=== PATIENT | male | born 1935 | race Caucasian/White ===

== ENCOUNTER → 2017-06-25 | Outpatient (CLI) | payer OTHER ==
[2015-09-21 00:20] VITALS: BP 116/61
--- NOTE | 2017-06-25 15:25 | MRI ---
MRI left shoulder without contrast Indication: Chronic left shoulder pain Technique: Multisequence, multiplanar MR images of the left shoulder were obtained without IV contras t. Comparison: None Findings: No acute fracture or malalignment is identified. There are complete tears of the supraspinatus and infraspinatus tendons at the footplate with central retraction of the torn tendons to the level of the AC joint. There is also a full-thickness tear of the subscapularis with only a few intact inferior fibers remaining. The teres minor is normal. There is marked diffuse atrophy of the supraspinatus, infraspinatus and subscapularis muscles, compatible w ith chronicity. There is moderate degenerative arthrosis of the AC joint. The type 2 acromion is unremarkable. There is advanced degenerative arthrosis of the glenohumeral joint with diffuse full-thickness cartilage lo ss throughout the joint space and prominent marginal osteophyte formation. There is also complete obl iteration of the acromiohumeral interval with contact between the inferior surface of the acromion an d superior humeral head. A small glenohumeral joint effusion is present. The intra-articular and extra-articular portions of the long head biceps tendon are not definitively visualized. There is diffuse degenerative tearing and maceration of the glenoid labrum. Impression: Complete tears of the supraspinatus, infraspinatus and majority of the subscapularis tendon with marie ed associated muscle atrophy, compatible with chronicity. 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 Poor visualization of the long head biceps tendon, suggestive for tear versus medial displacement sec ondary to subscapularis tears. Diffuse degenerative tearing and maceration of the glenoid labrum. Reported By:
== END | disposition home or self-care (01) | DRG 556 ==
LOC: RAD 09:18
PROVIDERS: ATTEND Internal Medicine
DX: M25.512 Pain in left shoulder (principal); M75.122 Complete rotator cuff tear or rupture of left shoulder, not specified as traumatic; M19.012 Primary osteoarthritis, left shoulder
CPT/HCPCS: 73221

== ENCOUNTER 2019-09-10 16:44 | Inpatient (IN) ==
--- NOTE | 2019-09-10 16:55 | DR.SOBA ---
HPI - Time Seen Time seen: 16:50 - HPI Comment HPI Comment: Patient with wheezing, confusion dyspnea onset today. No history of lung disease. Denies cough, vomiting, urinary symptoms. - COVID-19 Coronavirus risk:travel/contact w/high risk person: No Has patient experienced Coronavirus symptoms: Yes Coronavirus symptoms experienced: Fever, Shortness of Breath - Reviewed Nurses Notes Reviewed: Yes - Source History Provided: Patient, Family Member - Mode of Arrival Mode of Arrival: Ambulatory - Duration Duration: Hours - Context Onset:: At Rest PE Risk Factors:: None History of:: None Prehospital Care:: None - Modifying Factors Worsens:: Exertion PMH - PMH Past Medical History: Angina, [place], Coronary Artery Disease, Hypertension, Dyslipidemia, CVA, GERD, Arthritis, Kidney Stones Past Surgical History: Yes Surgical History: Angioplasty/Stents, CABG/Valve Surgery Unable to Obtain Due To: Altered mental status (mild mostly alert) - Family History Family Medical History: [place] - Social History Do you use any recreational Drugs:: No ROS - Review of Systems Constitutional: Fever Eyes: No Symptoms Reported ENTM: No Symptoms Reported Respiratoy: Short of Breath, Wheezing Cardiovascular: No Symptoms Reported Gastrointestinal/Abdominal: No Symptoms Reported Genitourinary: No Symptoms Reported Neurological: Other (confusion intermittent) Musculoskeletal: No Symptoms Reported Integumentary: No Symptoms Reported Hematologic/Lymphatic: No Symptoms Reported Endocrine: No Symptoms Reported Psychiatric: No Symptoms Reported All Other Systems: Reviewed and Negative PE - General Limitations: No Limitations General Appearance: Alert, In No Apparent Distress - Head Head Exam: Normal Inspection - Eyes Eye exam: Normal Appearance, EOMI - ENT ENT Exam: Normal Exam, Normal Oropharynx - Neck Neck Exam: Normal Inspection, Full ROM, Trachea Midline - Chest Chest Inspection: Normal Inspection - Respiratory Respiratory Exam: Bilateral Wheezing, Lower Wheezing - Cardiovascular Cardiovascular Exam: Regular Rate - Abdominal Exam Abdominal Exam: Normal Inspection, Normal Bowel Sounds, Soft - Extremities Extremities Exam: Normal Inspection, Full ROM - Back Back Exam: Normal Inspection, Full ROM - Neurologic Neurological Exam: Alert, CN II-XII Intact - Psychiatric Psychiatric Exam: Depressed - Skin Skin Exam: Intact, Normal Color - Vital Signs Vitals: Temperature 100.4 F Pulse Rate 83 Respiratory Rate 16 Blood Pressure [Left Arm] 123/73 Blood Pressure 150/62 O2 Sat by Pulse Oximetry 90 Course - Consultation Called: 17:55 Call Returned: 17:58 Consultation Comments: Case discussed with DR. Stein admmarco ROR - Labs Reviewed Result Diagrams: 09/10/19 17:00 09/10/19 17:00 - XRAY XRAY Interpreted by: Radiologist, Self - EKG Rate: 85 [place]: Normal Rhythm: NSR Block: None Hypertrophy: None ST: Nonsp - Labs Reviewed Laboratory: WBC 15.1 X10^3/uL (3.6-10.0) H 09/10/19 17:00 RBC 4.35 X10^6/uL (4.7-6.0) L 09/10/19 17:00 Hgb 12.8 g/dL (13.5-18.0) L 09/10/19 17:00 Hct 39.2 % (42.0-54.0) L 09/10/19 17:00 MCV 90.0 fL (80.0-100.0) 09/10/19 17:00 MCH 29.4 pg (27.0-34.0) 09/10/19 17:00 MCHC 32.6 g/dL (33.0-35.0) L 09/10/19 17:00 RDW 14.1 % (11.6-16.5) 09/10/19 17:00 Plt Count 237 X10^3/uL (150.0-450.0) 09/10/19 17:00 MPV 8.6 fL (7.4-11.0) 09/10/19 17:00 Neut % (Auto) 79.0 % (42.0-75.0) H 09/10/19 17:00 Lymph % (Auto) 11.5 % (21.0-51.0) L 09/10/19 17:00 [place] % (Auto) 9.1 % (0.0-13.0) 09/10/19 17:00 Eos % (Auto) 0.2 % (0.9-2.9) L 09/10/19 17:00 Baso % (Auto) 0.2 % (0.2-1.0) 09/10/19 17:00 Neut # (Auto) 11.9 x10^3/uL (2.2-4.8) H 09/10/19 17:00 Lymph # (Auto) 1.7 X10^3/uL (1.3-2.9) 09/10/19 17:00 [place] # (Auto) 1.4 x10^3/uL (0.3-0.8) H 09/10/19 17:00 Eos # (Auto) 0.0 x10^3/uL (0.0-0.2) 09/10/19 17:00 Baso # (Auto) 0.0 X10^3/uL (0.0-0.1) 09/10/19 17:00 Absolute Nucleated RBC 0.0 /100WBC 09/10/19 17:00 Sodium 139 mmol/L (136-145) 09/10/19 17:00 Corrected Sodium 139 mmol/L (136-145) 09/10/19 17:00 Potassium 3.8 mmol/L (3.5-5.1) 09/10/19 17:00 Chloride 102 mmol/L (98-107) 09/10/19 17:00 Carbon Dioxide 29.8 mmol/L (21-32) 09/10/19 17:00 BUN 26 mg/dL (7-18) H 09/10/19 17:00 Creatinine 1.17 mg/dL (0.70-1.30) 09/10/19 17:00 Est GFR (MDRD) Af Amer > 60 (>60) 09/10/19 17:00 Est GFR (MDRD) Non-Af > 60 (>60) 09/10/19 17:00 Glucose 116 mg/dL (65-99) H 09/10/19 17:00 Calcium 9.2 mg/dL (8.5-10.1) 09/10/19 17:00 Corrected Calcium 10.2 mg/dL (8.5-10.1) H 09/10/19 17:00 Total Bilirubin 0.90 mg/dL (0.2-1.0) 09/10/19 17:00 AST 28 Units/L (15-37) 09/10/19 17:00 ALT 16 Units/L (12-78) 09/10/19 17:00 Alkaline Phosphatase 106 Units/L (46-116) 09/10/19 17:00 Total Protein 7.2 g/dL (6.4-8.2) 09/10/19 17:00 Albumin 2.7 g/dL (3.4-5.0) L 09/10/19 17:00 Globulin 4.5 g/dL (2.5-4.5) 09/10/19 17:00 Albumin/Globulin Ratio 0.6 Ratio (1.1-2.1) L 09/10/19 17:00 Influenza Type A Ag Negative-presumptive (NEGATIVE) 09/10/19 17:10 Influenza Type B Ag Negative-presumptive (NEGATIVE) 09/10/19 17:10 S. pyogenes (TEM-PCR) Not detected (NOT DETECT) 09/10/19 17:10 - XRAY Xray Findings: chest: IMPRESSION 1. Chronic appearing elevation of both hemidiaphragms, right greater than left, with associated bibasilar atelectasis which limits optimal evaluation of both lung bases. 2. Air-filled loops of bowel beneath the right hemidiaphragm likely reflecting the hepatic flexure. Correlation for bowel obstruction is requested. 3. Post median sternotomy and CABG. (DENISE LIMA) Opioid - Opioid Risk Tool Age (Denise box if 16-45): No History of Preadolescent Sexual Abuse: No Total: 0 Total Score Risk Category: Low Risk - Diagnosis Discharge Problem: Pneumonia Qualifiers: Pneumonia type: due to unspecified organism Laterality: right Lung location: lower lobe of lung Qualified Code(s): J18.9 - Pneumonia, unspecified organism - Discharge Plan Condition: Stable
[2019-09-10] MEDS ORDERED: MOTRIN TAB 800 MG PO ONE ×2 (17:05→17:09)
[2019-09-10 17:28] LABS: ALANINE AMINOTRANSFERASE 16 Units/L (12-78); ALBUMIN 2.7 g/dL (3.4-5.0); ALKALINE PHOSPHATASE 106 Units/L (46-116); ASPARTATE AMINO TRANSFERASE 28 Units/L (15-37); BLOOD UREA NITROGEN 26 mg/dL (7-18); CALCIUM 9.2 mg/dL (8.5-10.1); CARBON DIOXIDE 29.8 mmol/L (21-32); CHLORIDE 102 mmol/L (98-107); COR CA(FOR HYPOALB) 10.2 mg/dL (8.5-10.1); COR NA(FOR HYPERGLY) 139 mmol/L (136-145); CREATININE 1.17 mg/dL (0.70-1.30); SODIUM 139 mmol/L (136-145); TOTAL PROTEIN 7.2 g/dL (6.4-8.2); eGFR NON BLACK RACES > 60 (>60)
--- NOTE | 2019-09-10 17:40 | RAD ---
HISTORYSOB, HEMOPTYSISSTUDYCHEST, 1 [id number]/2019.FINDINGSThe trachea is midline. There has been previous median sternotomy and CABG. There is chronic appearing elevation of both hemidiaphragms, right greater than left, with associated bibasilar atelectasis. There are air-filled loops of bowel beneath the right hemidiaphragm likely reflecting the hepatic flexure. The upper lung zones are clear bilaterally. Bony thorax is grossly unchanged.IMPRESSION1. Chronic appearing elevation of both hemidiaphragms, right greater than left, with associated bibasilar atelectasis which limits optimal evaluation of both lung bases.2. Air-filled loops of bowel beneath the right hemidiaphragm likely reflecting the hepatic flexure. Correlation for bowel obstruction is requested.3. Post median sternotomy and CABG.Electronically signed by: LINDA AUGUSTINE (Sep 10, 2019 17:38:47)
[2019-09-10 17:44] LABS: BASOPHILS % (AUTO) 0.2 % (0.2-1.0); EOSINOPHILS % (AUTO) 0.2 % (0.9-2.9); HEMATOCRIT 39.2 % (42.0-54.0); HEMOGLOBIN 12.8 g/dL (13.5-18.0); LYMPHOCYTES # (AUTO) 1.7 X10^3/uL (1.3-2.9); LYMPHOCYTES % (AUTO) 11.5 % (21.0-51.0); MEAN CORPUSCULAR HEMOGLOBIN 29.4 pg (27.0-34.0); MEAN CORPUSCULAR HGB CONC 32.6 g/dL (33.0-35.0); MEAN PLATELET VOLUME 8.6 fL (7.4-11.0); MONOCYTES # (AUTO) 1.4 x10^3/uL (0.3-0.8); MONOCYTES % (AUTO) 9.1 % (0.0-13.0); NEUTROPHILS # (AUTO) 11.9 x10^3/uL (2.2-4.8); PLATELET COUNT 237 X10^3/uL (150.0-450.0); RED BLOOD COUNT 4.35 X10^6/uL (4.7-6.0); RED CELL DISTRIBUTION WIDTH 14.1 % (11.6-16.5); WHITE BLOOD COUNT 15.1 X10^3/uL (3.6-10.0)
[2019-09-10] MEDS ORDERED: NS 1000 ML 1,000 ML ONE (18:11)
[2019-09-10] MEDS ORDERED: ZITHROMAX INJ 500 MG VIAL IV ONE (18:12)
[2019-09-10] MEDS ORDERED: NS 250 ML IV 250 ML IV ONE (18:12)
[2019-09-10] MEDS: NS 1000 ML 1,000 ML IV SCH (18:15)
[2019-09-10] MEDS: ZITHROMAX INJ 500 MG VIAL 500 MG in NS 250 ML IV 250 ML IV SCH (18:15)
[2019-09-10] MEDS ORDERED: TESSALON PERLES PO PRN (18:15)
[2019-09-10 18:40] LABS: CKMB % 0.6 % (<4); CREATINE KINASE 224 Units/L (39-308); CREATINE KINASE MB 1.3 ng/mL (0-4.0); TROPONIN I < 0.02 ng/mL (0-1.5)
[2019-09-10 19:54] LABS: ABG BASE EXCESS 3.3 mmol/L (-2.0-2.0); ABG HCO3 27.8 mmol/L (22-26)
[2019-09-10 19:59] LABS: ABG ALLEN TEST POSS
[2019-09-10] MEDS ORDERED: DUONEB 0.5 MG/3 MG (3 mL) NEB SCH (21:00)
[2019-09-10 23:32] LABS: BILIRUBIN,URINE NEGATIVE (NEGATIVE); BLOOD/HEMOGLOBIN,URINE 2+ (NEGATIVE); GLUCOSE, URINE NEGATIVE (NEGATIVE); KETONES,URINE 1+ (NEGATIVE); LEUKOCYTE ESTERASE ,URINE 1+ (NEGATIVE); NITRITES,URINE NEGATIVE (NEGATIVE); PROTEIN,URINE 3+ (NEGATIVE); UROBILINOGEN,URINE 2+ (NORMAL)
[2019-09-10 23:44] LABS: APPEARANCE,URINE HAZY (CLEAR); COLOR,URINE AMBER (YELLOW); RBC,URINE 0-2 /HPF (0-3)
[2019-09-10 23:45] LABS: BACTERIA,URINE TRACE /HPF (NEGATIVE); SQUAMOUS EPITHELIAL CELL,UR RARE /HPF (NEGATIVE)
[2019-09-11 01:23] VITALS: BMI 28.1
[2019-09-11] MEDS: ZOSYN VIAL 3.375 GRAMS 3.375 G in NS 100 ML IV + SPIKE MINIBAG* 100 ML IV SCH ×4 (02:17→22:49)
[2019-09-11] MEDS: PLAQUENIL PO SCH ×3 (02:27→22:50)
[2019-09-11] MEDS: ROBITUSSIN DM PO SCH ×5 (02:27→22:50)
[2019-09-11 05:27] LABS: BASOPHILS % (AUTO) 0.4 % (0.2-1.0); EOSINOPHILS # (AUTO) 0.2 x10^3/uL (0.0-0.2); EOSINOPHILS % (AUTO) 1.6 % (0.9-2.9); HEMATOCRIT 33.1 % (42.0-54.0); HEMOGLOBIN 11.2 g/dL (13.5-18.0); LYMPHOCYTES # (AUTO) 1.5 X10^3/uL (1.3-2.9); MEAN CORPUSCULAR HEMOGLOBIN 30.4 pg (27.0-34.0); MEAN CORPUSCULAR HGB CONC 33.9 g/dL (33.0-35.0); MEAN CORPUSCULAR VOLUME 89.5 fL (80.0-100.0); MEAN PLATELET VOLUME 8.5 fL (7.4-11.0); MONOCYTES # (AUTO) 1.1 x10^3/uL (0.3-0.8); MONOCYTES % (AUTO) 9.9 % (0.0-13.0); NEUTROPHILS # (AUTO) 8.1 x10^3/uL (2.2-4.8); NEUTROPHILS % (AUTO) 74.1 % (42.0-75.0); PLATELET COUNT 184 X10^3/uL (150.0-450.0); RED CELL DISTRIBUTION WIDTH 13.7 % (11.6-16.5); WHITE BLOOD COUNT 10.9 X10^3/uL (3.6-10.0)
[2019-09-11 05:38] LABS: ALANINE AMINOTRANSFERASE 19 Units/L (12-78); ALBUMIN 2.2 g/dL (3.4-5.0); ALKALINE PHOSPHATASE 93 Units/L (46-116); ASPARTATE AMINO TRANSFERASE 27 Units/L (15-37); BLOOD UREA NITROGEN 25 mg/dL (7-18); CALCIUM 8.6 mg/dL (8.5-10.1); CARBON DIOXIDE 28.8 mmol/L (21-32); CHLORIDE 106 mmol/L (98-107); CREATININE 0.99 mg/dL (0.70-1.30); SODIUM 140 mmol/L (136-145); eGFR NON BLACK RACES > 60 (>60)
[2019-09-11] MEDS: NS 1000 ML 1,000 ML IV SCH (10:11)
[2019-09-11] MEDS: ZITHROMAX INJ 500 MG VIAL 500 MG in NS 250 ML IV 250 ML IV SCH (15:00)
[2019-09-11] MEDS: ZITHROMAX INJ 500 MG VIAL 500 MG in D5W 250 ML IV 250 ML IV SCH (15:00)
[2019-09-11] MEDS: DUONEB 0.5 MG/3 MG (3 mL) NEB PRN ×2 (18:00→21:45)
[2019-09-12] MEDS: NS 1000 ML 1,000 ML IV SCH ×2 (00:17→18:59)
[2019-09-12 06:51] LABS: BASOPHILS % (AUTO) 0.3 % (0.2-1.0); EOSINOPHILS % (AUTO) 0.6 % (0.9-2.9); HEMATOCRIT 34.6 % (42.0-54.0); HEMOGLOBIN 11.7 g/dL (13.5-18.0); LYMPHOCYTES # (AUTO) 1.4 X10^3/uL (1.3-2.9); LYMPHOCYTES % (AUTO) 15.8 % (21.0-51.0); MEAN CORPUSCULAR HGB CONC 33.7 g/dL (33.0-35.0); MEAN PLATELET VOLUME 8.4 fL (7.4-11.0); MONOCYTES # (AUTO) 0.9 x10^3/uL (0.3-0.8); MONOCYTES % (AUTO) 10.4 % (0.0-13.0); NEUTROPHILS # (AUTO) 6.3 x10^3/uL (2.2-4.8); NEUTROPHILS % (AUTO) 72.9 % (42.0-75.0); PLATELET COUNT 205 X10^3/uL (150.0-450.0); RED BLOOD COUNT 3.89 X10^6/uL (4.7-6.0); RED CELL DISTRIBUTION WIDTH 13.7 % (11.6-16.5); WHITE BLOOD COUNT 8.7 X10^3/uL (3.6-10.0)
--- NOTE | 2019-09-12 06:58 | RAD ---
HISTORYPNEUMONIASTUDYSingle-view [id number]/24/2020FINDINGSThe trachea is midline. The cardiac silhouette is enlarged with a tortuous thoracic aorta. Prior changes of median sternotomy and CABG are observed. Blunting of the left costophrenic angle is noted with discoid atelectasis to suggest small pleural effusion and subsegmental atelectasis. Chronic elevation the right hemidiaphragm is again noted and stable. The bony thorax is unremarkable.IMPRESSIONSubsegmental atelectasis left base with blunted left costophrenic angle to suggest a small pleural effusion. Essentially stable radiograph.Electronically signed by: YASH HERANNDEZ (Sep 12, 2019 06:57:01)
[2019-09-12 07:03] LABS: ALANINE AMINOTRANSFERASE 20 Units/L (12-78); ALBUMIN 2.2 g/dL (3.4-5.0); ALKALINE PHOSPHATASE 102 Units/L (46-116); ASPARTATE AMINO TRANSFERASE 31 Units/L (15-37); BLOOD UREA NITROGEN 12 mg/dL (7-18); CALCIUM 8.4 mg/dL (8.5-10.1); CARBON DIOXIDE 27.8 mmol/L (21-32); CHLORIDE 106 mmol/L (98-107); COR CA(FOR HYPOALB) 9.8 mg/dL (8.5-10.1); COR NA(FOR HYPERGLY) 142 mmol/L (136-145); CREATININE 0.89 mg/dL (0.70-1.30); SODIUM 141 mmol/L (136-145); TOTAL PROTEIN 6.1 g/dL (6.4-8.2); eGFR NON BLACK RACES > 60 (>60)
[2019-09-12] MEDS ORDERED: MAGNESIUM SULFATE 1 GRAM/100 mL PREMIX 1 GM/100 ML BAG IV PRN (08:03)
[2019-09-12] MEDS ORDERED: POTASSIUM CHL 40 MEQ/NS 0.45% 500 ML IV PRN (08:03)
[2019-09-12] MEDS ORDERED: POTASSIUM CHLORIDE LIQ 20 MEQ UDC PO PRN (08:03)
[2019-09-12] MEDS ORDERED: MICRO K EXTEN CAP 10 MEQ PO PRN (08:03)
[2019-09-12] MEDS ORDERED: POTASSIUM CHL 60 MEQ/NS 0.45% 500 ML IV PRN (08:03)
[2019-09-12] MEDS ORDERED: K-RIDER 10 MEQ/NS 100 ML 10 MEQ/100 ML BAG IV PRN (08:03)
[2019-09-12] MEDS ORDERED: KLOR-CON PO PRN (08:03)
[2019-09-12] MEDS: PLAQUENIL PO SCH ×2 (10:25→21:55)
[2019-09-12] MEDS: ROBITUSSIN DM PO SCH ×4 (10:25→22:18)
[2019-09-12] MEDS: K-DUR TAB 20 MEQ PO PRN ×2 (10:30→21:55)
[2019-09-12] MEDS ORDERED: XOPENEX 1.25 MG/3 ML NEBULE NEB PRN (11:56)
[2019-09-12] MEDS: ZOSYN VIAL 3.375 GRAMS 3.375 G in NS 100 ML IV + SPIKE MINIBAG* 100 ML IV SCH ×3 (15:35→22:19)
[2019-09-12] MEDS: ZITHROMAX INJ 500 MG VIAL 500 MG in D5W 250 ML IV 250 ML IV SCH (17:30)
[2019-09-13] MEDS: NS 1000 ML 1,000 ML IV SCH ×2 (02:15→17:09)
--- NOTE | 2019-09-13 06:18 | RAD ---
HISTORYFollow-up pneumoniaSTUDYCHEST, 1 [id number]/26/2020FINDINGSPatient is status post median sternotomy and CABG. The heart is enlarged. No congestive heart failure is noted. The lungs are hypoinflated but free of acute infiltrates. There is subsegmental atelectasis in the left costophrenic angle. No pleural effusions are identified. Bony thorax is unremarkable.IMPRESSIONContinued cardiomegaly without congestive heart failureLungs hypoinflated but clear with the exception of minimal subsegmental atelectasis and left costophrenic angleElectronically signed by: PREMA ALLEN (Sep 13, 2019 06:17:49)
[2019-09-13 06:36] LABS: BASOPHILS % (AUTO) 0.2 % (0.2-1.0); EOSINOPHILS % (AUTO) 0.2 % (0.9-2.9); HEMATOCRIT 37.6 % (42.0-54.0); HEMOGLOBIN 12.6 g/dL (13.5-18.0); MEAN CORPUSCULAR HEMOGLOBIN 29.8 pg (27.0-34.0); MEAN CORPUSCULAR HGB CONC 33.7 g/dL (33.0-35.0); MEAN CORPUSCULAR VOLUME 88.6 fL (80.0-100.0); MEAN PLATELET VOLUME 8.3 fL (7.4-11.0); NEUTROPHILS # (AUTO) 9.4 x10^3/uL (2.2-4.8); NEUTROPHILS % (AUTO) 81.6 % (42.0-75.0); PLATELET COUNT 238 X10^3/uL (150.0-450.0); RED BLOOD COUNT 4.24 X10^6/uL (4.7-6.0); RED CELL DISTRIBUTION WIDTH 13.9 % (11.6-16.5); WHITE BLOOD COUNT 11.5 X10^3/uL (3.6-10.0)
[2019-09-13] MEDS: ZOSYN VIAL 3.375 GRAMS 3.375 G in NS 100 ML IV + SPIKE MINIBAG* 100 ML IV SCH ×3 (06:53→21:26)
[2019-09-13 06:58] LABS: ALANINE AMINOTRANSFERASE 29 Units/L (12-78); ALBUMIN 2.5 g/dL (3.4-5.0); ALKALINE PHOSPHATASE 117 Units/L (46-116); ASPARTATE AMINO TRANSFERASE 40 Units/L (15-37); BLOOD UREA NITROGEN 9 mg/dL (7-18); CALCIUM 8.9 mg/dL (8.5-10.1); CARBON DIOXIDE 26.3 mmol/L (21-32); CHLORIDE 102 mmol/L (98-107); COR CA(FOR HYPOALB) 10.1 mg/dL (8.5-10.1); COR NA(FOR HYPERGLY) 137 mmol/L (136-145); CREATININE 0.92 mg/dL (0.70-1.30); MAGNESIUM 2.1 mg/dL (1.7-2.9); SODIUM 137 mmol/L (136-145); TOTAL PROTEIN 6.9 g/dL (6.4-8.2); eGFR NON BLACK RACES > 60 (>60)
[2019-09-13 07:38] LABS: ERYTHROCYTE SEDIMENTATION RATE 55 MM/HOUR (0-15)
[2019-09-13] MEDS: ROBITUSSIN DM PO SCH ×4 (08:36→21:27)
[2019-09-13] MEDS: PLAQUENIL PO SCH ×2 (08:45→21:25)
[2019-09-13] MEDS: ELAVIL PO SCH ×2 (09:56→21:25)
[2019-09-13] MEDS: ASPIRIN PO SCH (09:57)
[2019-09-13] MEDS: CELEXA PO SCH (09:58)
[2019-09-13] MEDS: COLACE CAP 100 MG PO SCH ×2 (09:58→21:25)
[2019-09-13] MEDS: PriLOSEC PO SCH (09:58)
[2019-09-13] MEDS: K-DUR TAB 20 MEQ PO PRN (09:59)
[2019-09-13] MEDS: MILK OF MAGNESIA PO SCH ×4 (10:00→21:25)
--- NOTE | 2019-09-13 10:15 | DR.H&P ---
H&P - History & Physical for Day of: H&P Date: 09/10/19 - Chief Complaint Chief Complaint: COUGH, SOB, WHEEZING, FEVER, CONFUSION - History of Present Illness History of Present Illness: IS A 84 YEAR OLD PATIENT OF OURS WHO PRESENTED TO THE ER WITH COMPLAINTS OF WHEEZING, SHORNTESS OF BREATH, FEVER, AND CONFUSION. HE DENIES COUGH, VOMITING, URINARY SYMPTOMS, OR A HISTORY OF LUNG DISEASE. HE REPORTS THAT SYMPTOMS STARTED ONE DAY PRIOR TO ARRIVAL. HE ALSO REPORTS BEING UNABLE TO HAVE A BOWEL MOVEMENT IN SEVERAL DAYS. PMH INCLUDES: Angina, [place], Coronary Artery Disease, Hypertension, Dyslipidemia, CVA, GERD, Arthritis, Kidney Stones. ON ARRIVAL TO THE ER, VITALS WERE 100.4-83-16-90%-150/62. LABS WERE OBTAINED. ABNORMAL LAB VALUES INCLUDE THE FOLLOWING: WBC 15.1, RBC 4.35, HGB 12.8, HCT 39.2, BUN 26, GLUCOSE 116, ALBUMIN 2.7. CARDIAC ENZYMES WERE WITHIN NORMAL LIMITS. A URINALYSIS WAS OBTAINED AND REVEALED: WBC 3-5, RBC 0-2, LEUKOCYTES 1+, BACTERIA TRACE. INFLUENZA AND STREP NEGATIVE. HE WAS SWABBED FOR COVID-19. BLOOD CULTURES WERE SET UP. EKG OBTAINED AND REVEALED: SINUS RHYTHM WITH HR 85. A CHEST XRAY WAS OBTAINED AND REVELAED: The trachea is midline. There has been previous median sternotomy and CABG. There is chronic appearing elevation of both hemidiaphragms, right greater than left, with associated bibasilar atelectasis. There are air-filled loops of bowel beneath the right hemidiaphragm likely reflecting the hepatic flexure. The upper lung zones are clear bilaterally. Bony thorax is grossly unchanged. HE WAS ADMITTED TO THE HOSPITAL FOR FURTHER EVALUATION AND TREATMENT OF PNEUMONIA. HE WAS STARTED ON NS AT 75 ML/HR, AZITHROMYCIN 500MG IV DAILY, ZOSYN 3.375G IV TID, XOPENEX NEB TX, TESSALON PERLES TID, AND ROBITUSSIN DM QID. TODAY, WE WILL ADD COLACE 100MG PO BID AND MILK OF MAGNESIA 15ML PO QID FOR CONSTIPATION. WE WILL OBTAIN AM LABS AND CHEST XRAY. OTHERWISE, WE WILL FOLLOW UP WITH AM LABS AND CONTINUE TO MONITOR. - Past Medical History Past Medical History: Angina, [place], Coronary Artery Disease, Hypertension, Dyslipidemia, CVA, GERD, Arthritis, Kidney Stones - Past Surgical History Surgical History: Angioplasty/Stents, CABG/Valve Surgery - Family History Family Medical History: Coronary Artery Disease, Hypertension - Social History Does patient currently use any type of tobacco product: No Have you used tobacco products in the last 12 months: No Type of Tobacco Use: None Does any household member use tobacco: No Alcohol Use: None Drug Use: None - Medications Home Medications: ciprofloxacin [From Cipro] Allergy (Verified 04/25/19 16:28) Sulfa (Sulfonamide Antibiotics) [SULFA] Allergy (Verified 04/25/19 16:28) CONTINUE taking the following medications amitriptyline 20 mg PO QHS 09/11/19 [History] - Review of Systems Constitutional: Fever, Weakness, Malaise Eyes: No Symptoms Reported ENT: No Symptoms Reported Respiratory: See HPI, Shortness of Breath, SOB with Excertion, Wheezing. denies: Cough Cardiovascular: No Symptoms Reported Gastrointestinal: No Symptoms Reported Genitourinary: No Symptoms Reported Musculoskeletal: No Symptoms Reported Skin: No Symptoms Reported Neurological: See HPI, Weakness, Confusion - Physical Exam Vital Signs: Temperature 99.8 F Pulse Rate [Left Brachial] 80 Pulse Rate 103 Respiratory Rate 23 Blood Pressure [Left Arm] 142/63 Blood Pressure 186/88 O2 Sat by Pulse Oximetry 98 Oriented: Person Eyes: Normal Ear: Normal Nose: Normal Throat: Normal Respiratory: Wheezes Throughout Cardiovascular: Normal. negative: S3, S4, Murmur : Normal Auscultation: Bowel Sounds: Normal Palpation: Normal Tenderness: Normal Skin: Normal Musculoskeletal: Normal Psychiatric: Other (CONFUSION ) Mood Description: Calm Affect: Normal Speech Pattern: Inappropriate - Assessment/Plan (1) Pneumonia Qualifiers: Pneumonia type: due to unspecified organism Laterality: right Lung location: lower lobe of lung Qualified Code(s): J18.9 - Pneumonia, unspecified organism Status: Acute Plan: ADMIT, NS AT 75 ML/HR, AZITHROMYCIN 500MG IV DAILY, ZOSYN 3.375G IV TID, XOPENEX NEB TX, TESSALON PERLES TID, AND ROBITUSSIN DM QID - Review H&P Reviewed: Yes Patient was examined?: Yes - Allergies Allergies/Adverse Reactions: Allergies Allergy/AdvReac Type Severity Reaction Status Date / Time ciprofloxacin [From Cipro] Allergy Verified 04/25/19 16:28 Sulfa (Sulfonamide Allergy Verified 04/25/19 16:28 Antibiotics) [SULFA]
[2019-09-13] MEDS: LOVENOX INJ 40 MG SYR SC SCH (13:15)
--- NOTE | 2019-09-13 16:33 | PCM.PROG ---
Progress Note - Progress Note for Day of Date of Exam: 09/12/19 - Subjective Subjective: IS BEING TREATED FOR PNEUMONIA. HE WAS TESTED FOR COVID- 19, RESULTS ARE PENDING. TODAY, HE IS ALERT AND ORIENTED, LYING IN BED ON MORNING ROUNDS. HE REPORTS COUGH, SHORTNESS OF BREATH, AND WEAKNESS THIS MORNING. HE ALSO REPORTS BEING UNABLE TO HAVE A BOWEL MOVEMENT IN THE PAST FEW D AYS. ON EXAMINATION, HEART IS REGULAR IN RATE AND RHYTHM. BILATERAL LUNGS ARE NOTED WITH SCATTERED WHEEZING AND RHONCHI THROUGHOUT. ABDOMEN IS ROUND, SOFT, AND NON-TENDER WITH NORMAL BOWEL SOUNDS NOTED IN ALL QUADRANTS. HIS VITALS THIS MORNING ARE: 99.2-93-24-100%RA-156/76. LABS WERE OBTAINED. ABNORMAL LAB VALUES INCLUDE THE FOLLOWING: RBC 3.89, HGB 11.7, HCT 34.6, POTASSIUM 3.1, GLUCOSE 122, CALCIUM 8.4, TOTAL PROTEIN 6.1, ALBUMIN 2.2. BLOOD CULTURES ARE PENDING. A CHEST XRAY WAS OBTAINED AND REVEALED: Subsegmental atelectasis left base with blunted left costophrenic angle to suggest a small pleural effusion. Essentially stable radiograph. HE IS CURRENTLY RECEIVING NS AT 75 ML/HR, AZITHROMYCIN 500MG IV DAILY, ZOSYN 3.375G IV TID, XOPENEX NEB TX, TESSALON PERLES TID, AND ROBITUSSIN DM QID. WE WILL CONTINUE WITH CURRENT PLAN OF CARE TODAY AND START THE POTASSIUM AND MAGNESIUM PROTOCOLS. OTHERWISE, WE PLAN TO FOLLOW UP WITH AM LABS AND CHEST XRAY AND CONTINUE TO MONITOR. - Past Medical Family Social History Past Med/Fam/Surg Hx: No changes since H&P Allergies: Allergies ciprofloxacin [From Cipro] Allergy (Verified 04/25/19 16:28) Sulfa (Sulfonamide Antibiotics) [SULFA] Allergy (Verified 04/25/19 16:28) - Review of Systems ROS: No change since H&P - Vital Signs and I&O's Vital Signs: Temperature 98.3 F Pulse Rate [Left Brachial] 80 Pulse Rate 81 Respiratory Rate 23 Blood Pressure [Left Arm] 142/63 Blood Pressure 157/72 O2 Sat by Pulse Oximetry 100 Intake and Output: Intake & Output 09/11/19 09/12/19 09/13/19 09/14/19 11:59 11:59 11:59 11:59 Intake Total 1485 / 1485 4105 / 4105 2563 / 2563 1050 / 1050 Output Total 600 / 600 Balance 885 / 885 4105 / 4105 2563 / 2563 1050 / 1050 - Physical Exam Oriented: Person Eyes: Normal Ear: Normal Nose: Normal Throat: Normal Respiratory: Generalized, Wheezes, Rhonchi Cardiovascular: Normal. negative: S3, S4, Murmur : Normal Auscultation: Bowel Sounds: Normal Palpation: Normal Tenderness: Normal Skin: Normal Musculoskeletal: Normal Psychiatric: Other (CONFUSION ) Mood Description: Calm Affect: Normal Speech Pattern: Inappropriate - Laboratory and Diagnostics Result Diagrams: 09/13/19 05:33 09/13/19 05:33 Labs: 09/10/19 17:21 Blood Blood Culture - Preliminary 09/10/19 17:00 Blood Blood Culture - Preliminary Laboratory WBC 11.5 X10^3/uL (3.6-10.0) H 09/13/19 05:33 RBC 4.24 X10^6/uL (4.7-6.0) L 09/13/19 05:33 Hgb 12.6 g/dL (13.5-18.0) L 09/13/19 05:33 Hct 37.6 % (42.0-54.0) L 09/13/19 05:33 MCV 88.6 fL (80.0-100.0) 09/13/19 05:33 MCH 29.8 pg (27.0-34.0) 09/13/19 05:33 MCHC 33.7 g/dL (33.0-35.0) 09/13/19 05:33 RDW 13.9 % (11.6-16.5) 09/13/19 05:33 Plt Count 238 X10^3/uL (150.0-450.0) 09/13/19 05:33 MPV 8.3 fL (7.4-11.0) 09/13/19 05:33 Neut % (Auto) 81.6 % (42.0-75.0) H 09/13/19 05:33 Lymph % (Auto) 9.0 % (21.0-51.0) L 09/13/19 05:33 [place] % (Auto) 9.0 % (0.0-13.0) 09/13/19 05:33 Eos % (Auto) 0.2 % (0.9-2.9) L 09/13/19 05:33 Baso % (Auto) 0.2 % (0.2-1.0) 09/13/19 05:33 Neut # (Auto) 9.4 x10^3/uL (2.2-4.8) H 09/13/19 05:33 Lymph # (Auto) 1.0 X10^3/uL (1.3-2.9) L 09/13/19 05:33 [place] # (Auto) 1.0 x10^3/uL (0.3-0.8) H 09/13/19 05:33 Eos # (Auto) 0.0 x10^3/uL (0.0-0.2) 09/13/19 05:33 Baso # (Auto) 0.0 X10^3/uL (0.0-0.1) 09/13/19 05:33 Absolute Nucleated RBC 0.0 /100WBC 09/13/19 05:33 ESR 55 MM/HOUR (0-15) H 09/13/19 05:33 Sample Site L rad 09/10/19 19:35 ABG pH 7.440 (7.35-7.45) 09/10/19 19:35 ABG pCO2 41.0 mmHg (35.0-45.0) 09/10/19 19:35 ABG pO2 82.0 mmHg (80.0-100.0) 09/10/19 19:35 ABG HCO3 27.8 mmol/L (22-26) H 09/10/19 19:35 ABG O2 Saturation 96.0 % (90-100) 09/10/19 19:35 ABG Base Excess 3.3 mmol/L (-2.0-2.0) H 09/10/19 19:35 [place] Test Poss 09/10/19 19:35 A-a Gradient 16.0 mmHg 09/10/19 19:35 FiO2 21.0 09/10/19 19:35 Blood Gas Comments Estela well kb 09/10/19 19:35 Sodium 137 mmol/L (136-145) 09/13/19 05:33 Corrected Sodium 137 mmol/L (136-145) 09/13/19 05:33 Potassium 3.7 mmol/L (3.5-5.1) 09/13/19 05:33 Chloride 102 mmol/L (98-107) 09/13/19 05:33 Carbon Dioxide 26.3 mmol/L (21-32) 09/13/19 05:33 BUN 9 mg/dL (7-18) 09/13/19 05:33 Creatinine 0.92 mg/dL (0.70-1.30) 09/13/19 05:33 Est GFR (MDRD) Af Amer > 60 (>60) 09/13/19 05:33 Est GFR (MDRD) Non-Af > 60 (>60) 09/13/19 05:33 Glucose 115 mg/dL (65-99) H 09/13/19 05:33 Calcium 8.9 mg/dL (8.5-10.1) 09/13/19 05:33 Corrected Calcium 10.1 mg/dL (8.5-10.1) 09/13/19 05:33 Magnesium 2.1 mg/dL (1.7-2.9) 09/13/19 05:33 Total Bilirubin 0.60 mg/dL (0.2-1.0) 09/13/19 05:33 AST 40 Units/L (15-37) H 09/13/19 05:33 ALT 29 Units/L (12-78) 09/13/19 05:33 Alkaline Phosphatase 117 Units/L (46-116) H 09/13/19 05:33 Creatine Kinase 224 Units/L (39-308) 09/10/19 17:00 CK-MB (CK-2) 1.3 ng/mL (0-4.0) 09/10/19 17:00 CK/CKMB % Calc 0.6 % (<4) 09/10/19 17:00 Troponin I < 0.02 ng/mL (0-1.5) 09/10/19 17:00 C-Reactive Protein 108.20 mg/L (0-3.0) H 09/13/19 05:33 Total Protein 6.9 g/dL (6.4-8.2) 09/13/19 05:33 Albumin 2.5 g/dL (3.4-5.0) L 09/13/19 05:33 Globulin 4.4 g/dL (2.5-4.5) 09/13/19 05:33 Albumin/Globulin Ratio 0.6 Ratio (1.1-2.1) L 09/13/19 05:33 Specimen Type Clean catch urine 09/10/19 23:10 Urine Color [place] (YELLOW) 09/10/19 23:10 Urine Appearance Hazy (CLEAR) 09/10/19 23:10 Urine pH 6.0 (5.0 - 8.0) 09/10/19 23:10 Ur Specific [place] 1.025 (1.000-1.030) 09/10/19 23:10 Urine Protein 3+ (NEGATIVE) 09/10/19 23:10 Urine Glucose (UA) Negative (NEGATIVE) 09/10/19 23:10 Urine Ketones 1+ (NEGATIVE) 09/10/19 23:10 Urine Occult Blood 2+ (NEGATIVE) 09/10/19 23:10 Urine Nitrite Negative (NEGATIVE) 09/10/19 23:10 Urine Bilirubin Negative (NEGATIVE) 09/10/19 23:10 Urine Urobilinogen 2+ (NORMAL) 09/10/19 23:10 Ur Leukocyte Esterase 1+ (NEGATIVE) 09/10/19 23:10 Urine RBC 0-2 /HPF (0-3) 09/10/19 23:10 Urine WBC 3-5 /HPF (0-5) 09/10/19 23:10 Ur Squamous Epith Cells Rare /HPF (NEGATIVE) 09/10/19 23:10 Urine Bacteria Trace /HPF (NEGATIVE) 09/10/19 23:10 Ur Culture Indicated? No/not indicated 09/10/19 23:10 Influenza Type A Ag Negative-presumptive (NEGATIVE) 09/10/19 17:10 Influenza Type B Ag Negative-presumptive (NEGATIVE) 09/10/19 17:10 S. pyogenes (TEM-PCR) Not detected (NOT DETECT) 09/10/19 17:10 - Plan (1) Pneumonia Status: Acute Qualifiers: Pneumonia type: due to unspecified organism Laterality: right Lung location: lower lobe of lung Qualified Code(s): J18.9 - Pneumonia, unspecified organism Plan: NS AT 75 ML/HR, AZITHROMYCIN 500MG IV DAILY, ZOSYN 3.375G IV TID, XOPENEX NEB TX, TESSALON PERLES TID, AND ROBITUSSIN DM QID (2) Hypokalemia Status: Acute Plan: POTASSIUM PROTOCOL, CONTINUE TO MONITOR (3) Dyslipidemia Status: Chronic Plan: CONTINUE HOME MEDS, CONTINUE TO MONITOR (4) Depression Status: Chronic Qualifiers: Depression Type: major depressive disorder Major depression recurrence: unspecified whether recurrent Active/Remission status: remission status unspecified Qualified Code(s): F32.9 - Major depressive disorder, single episode, unspecified Plan: CONTINUE HOME MEDS, CONTINUE TO MONITOR (5) GERD (gastroesophageal reflux disease) Status: Chronic Qualifiers: Esophagitis presence: esophagitis presence not specified Qualified Code(s): K21.9 - Gastro-esophageal reflux disease without esophagitis Plan: CONTINUE HOME MEDS, CONTINUE TO MONITOR
--- NOTE | 2019-09-13 16:38 | PCM.PROG ---
Progress Note - Progress Note for Day of Date of Exam: 09/13/19 - Subjective Subjective: IS BEING TREATED FOR PNEUMONIA. HE WAS TESTED FOR COVID- 19, RESULTS ARE PENDING. TODAY, HE IS ALERT AND ORIENTED, LYING IN BED ON MORNING ROUNDS. HE REPORTS COUGH, SHORTNESS OF BREATH, AND WEAKNESS THIS MORNING. HE ALSO REPORTS BEING UNABLE TO HAVE A BOWEL MOVEMENT IN THE PAST FEW D AYS. ON EXAMINATION, HEART IS REGULAR IN RATE AND RHYTHM. BILATERAL LUNGS ARE NOTED WITH SCATTERED WHEEZING AND RHONCHI THROUGHOUT. ABDOMEN IS ROUND, SOFT, AND NON-TENDER WITH NORMAL BOWEL SOUNDS NOTED IN ALL QUADRANTS. HIS VITALS THIS MORNING ARE: 99.8-103-22-98%-146/91. LABS WERE OBTAINED. ABNORMAL LAB VALUES INCLUDE THE FOLLOWING: WBC 11.5, RBC 4.24, HGB 12.6, HCT 37.6, GLUCOSE 115, AST 40, ALK PHOS 117, CRP 108.20, ALBUMIN 2.5. BLOOD CULTURES ARE PENDING. A CHEST XRAY WAS OBTAINED AND REVEALED: Continued cardiomegaly without congestive heart failure. Lungs hypoinflated but clear with the exception of minimal subsegmental atelectasis and left costophrenic angle. HE IS CURRENTLY RECEIVING NS AT 75 ML/HR, AZITHROMYCIN 500MG IV DAILY, ZOSYN 3.375G IV TID, XOPENEX NEB TX, TESSALON PERLES TID, ROBITUSSIN DM QID, AND THE POTASSIUM AND MAGNESIUM PROTOCOLS. WE WILL CONTINUE WITH CURRENT PLAN OF CARE TODAY AND START COLACE BID AND MILK OF MAGNESIA 15ML PO QID. OTHERWISE, WE PLAN TO FOLLOW UP WITH AM LABS AND CHEST XRAY AND CONTINUE TO MONITOR. - Past Medical Family Social History Past Med/Fam/Surg Hx: No changes since H&P Allergies: Allergies ciprofloxacin [From Cipro] Allergy (Verified 04/25/19 16:28) Sulfa (Sulfonamide Antibiotics) [SULFA] Allergy (Verified 04/25/19 16:28) - Review of Systems ROS: No change since H&P - Vital Signs and I&O's Vital Signs: Temperature 98.3 F Pulse Rate [Left Brachial] 80 Pulse Rate 81 Respiratory Rate 23 Blood Pressure [Left Arm] 142/63 Blood Pressure 157/72 O2 Sat by Pulse Oximetry 100 Intake and Output: Intake & Output 04/25/20 09/12/19 09/13/19 09/14/19 11:59 11:59 11:59 11:59 Intake Total 1485 / 1485 4105 / 4105 2563 / 2563 1050 / 1050 Output Total 600 / 600 Balance 885 / 885 4105 / 4105 2563 / 2563 1050 / 1050 - Physical Exam Oriented: Person Eyes: Normal Ear: Normal Nose: Normal Throat: Normal Respiratory: Generalized, Wheezes, Rhonchi Cardiovascular: Normal. negative: S3, S4, Murmur : Normal Auscultation: Bowel Sounds: Normal Tenderness: Normal Skin: Normal Musculoskeletal: Normal Psychiatric: Other (CONFUSION ) Mood Description: Calm Affect: Normal Speech Pattern: Inappropriate - Laboratory and Diagnostics Result Diagrams: 09/13/19 05:33 09/13/19 05:33 Labs: 09/10/19 17:21 Blood Blood Culture - Preliminary 09/10/19 17:00 Blood Blood Culture - Preliminary Laboratory WBC 11.5 X10^3/uL (3.6-10.0) H 09/13/19 05:33 RBC 4.24 X10^6/uL (4.7-6.0) L 09/13/19 05:33 Hgb 12.6 g/dL (13.5-18.0) L 09/13/19 05:33 Hct 37.6 % (42.0-54.0) L 09/13/19 05:33 MCV 88.6 fL (80.0-100.0) 09/13/19 05:33 MCH 29.8 pg (27.0-34.0) 09/13/19 05:33 MCHC 33.7 g/dL (33.0-35.0) 09/13/19 05:33 RDW 13.9 % (11.6-16.5) 09/13/19 05:33 Plt Count 238 X10^3/uL (150.0-450.0) 09/13/19 05:33 MPV 8.3 fL (7.4-11.0) 09/13/19 05:33 Neut % (Auto) 81.6 % (42.0-75.0) H 09/13/19 05:33 Lymph % (Auto) 9.0 % (21.0-51.0) L 09/13/19 05:33 [place] % (Auto) 9.0 % (0.0-13.0) 09/13/19 05:33 Eos % (Auto) 0.2 % (0.9-2.9) L 09/13/19 05:33 Baso % (Auto) 0.2 % (0.2-1.0) 09/13/19 05:33 Neut # (Auto) 9.4 x10^3/uL (2.2-4.8) H 09/13/19 05:33 Lymph # (Auto) 1.0 X10^3/uL (1.3-2.9) L 09/13/19 05:33 [place] # (Auto) 1.0 x10^3/uL (0.3-0.8) H 09/13/19 05:33 Eos # (Auto) 0.0 x10^3/uL (0.0-0.2) 09/13/19 05:33 Baso # (Auto) 0.0 X10^3/uL (0.0-0.1) 09/13/19 05:33 Absolute Nucleated RBC 0.0 /100WBC 09/13/19 05:33 ESR 55 MM/HOUR (0-15) H 09/13/19 05:33 Sample Site L rad 09/10/19 19:35 ABG pH 7.440 (7.35-7.45) 09/10/19 19:35 ABG pCO2 41.0 mmHg (35.0-45.0) 09/10/19 19:35 ABG pO2 82.0 mmHg (80.0-100.0) 09/10/19 19:35 ABG HCO3 27.8 mmol/L (22-26) H 09/10/19 19:35 ABG O2 Saturation 96.0 % (90-100) 09/10/19 19:35 ABG Base Excess 3.3 mmol/L (-2.0-2.0) H 09/10/19 19:35 Carson Test Poss 09/10/19 19:35 A-a Gradient 16.0 mmHg 09/10/19 19:35 FiO2 21.0 09/10/19 19:35 Blood Gas Comments Estela well kb 09/10/19 19:35 Sodium 137 mmol/L (136-145) 09/13/19 05:33 Corrected Sodium 137 mmol/L (136-145) 09/13/19 05:33 Potassium 3.7 mmol/L (3.5-5.1) 09/13/19 05:33 Chloride 102 mmol/L (98-107) 09/13/19 05:33 Carbon Dioxide 26.3 mmol/L (21-32) 09/13/19 05:33 BUN 9 mg/dL (7-18) 09/13/19 05:33 Creatinine 0.92 mg/dL (0.70-1.30) 09/13/19 05:33 Est GFR (MDRD) Af Amer > 60 (>60) 09/13/19 05:33 Est GFR (MDRD) Non-Af > 60 (>60) 09/13/19 05:33 Glucose 115 mg/dL (65-99) H 09/13/19 05:33 Calcium 8.9 mg/dL (8.5-10.1) 09/13/19 05:33 Corrected Calcium 10.1 mg/dL (8.5-10.1) 09/13/19 05:33 Magnesium 2.1 mg/dL (1.7-2.9) 09/13/19 05:33 Total Bilirubin 0.60 mg/dL (0.2-1.0) 09/13/19 05:33 AST 40 Units/L (15-37) H 09/13/19 05:33 ALT 29 Units/L (12-78) 09/13/19 05:33 Alkaline Phosphatase 117 Units/L (46-116) H 09/13/19 05:33 Creatine Kinase 224 Units/L (39-308) 09/10/19 17:00 CK-MB (CK-2) 1.3 ng/mL (0-4.0) 09/10/19 17:00 CK/CKMB % Calc 0.6 % (<4) 09/10/19 17:00 Troponin I < 0.02 ng/mL (0-1.5) 09/10/19 17:00 C-Reactive Protein 108.20 mg/L (0-3.0) H 09/13/19 05:33 Total Protein 6.9 g/dL (6.4-8.2) 09/13/19 05:33 Albumin 2.5 g/dL (3.4-5.0) L 09/13/19 05:33 Globulin 4.4 g/dL (2.5-4.5) 09/13/19 05:33 Albumin/Globulin Ratio 0.6 Ratio (1.1-2.1) L 09/13/19 05:33 Specimen Type Clean catch urine 09/10/19 23:10 Urine Color Tory (YELLOW) 09/10/19 23:10 Urine Appearance Hazy (CLEAR) 09/10/19 23:10 Urine pH 6.0 (5.0 - 8.0) 09/10/19 23:10 Ur Specific [place] 1.025 (1.000-1.030) 09/10/19 23:10 Urine Protein 3+ (NEGATIVE) 09/10/19 23:10 Urine Glucose (UA) Negative (NEGATIVE) 09/10/19 23:10 Urine Ketones 1+ (NEGATIVE) 09/10/19 23:10 Urine Occult Blood 2+ (NEGATIVE) 09/10/19 23:10 Urine Nitrite Negative (NEGATIVE) 09/10/19 23:10 Urine Bilirubin Negative (NEGATIVE) 09/10/19 23:10 Urine Urobilinogen 2+ (NORMAL) 09/10/19 23:10 Ur Leukocyte Esterase 1+ (NEGATIVE) 09/10/19 23:10 Urine RBC 0-2 /HPF (0-3) 09/10/19 23:10 Urine WBC 3-5 /HPF (0-5) 09/10/19 23:10 Ur Squamous Epith Cells Rare /HPF (NEGATIVE) 09/10/19 23:10 Urine Bacteria Trace /HPF (NEGATIVE) 09/10/19 23:10 Ur Culture Indicated? No/not indicated 09/10/19 23:10 Influenza Type A Ag Negative-presumptive (NEGATIVE) 09/10/19 17:10 Influenza Type B Ag Negative-presumptive (NEGATIVE) 09/10/19 17:10 S. pyogenes (TEM-PCR) Not detected (NOT DETECT) 09/10/19 17:10 - Plan (1) Pneumonia Status: Acute Qualifiers: Pneumonia type: due to unspecified organism Laterality: right Lung location: lower lobe of lung Qualified Code(s): J18.9 - Pneumonia, unspecified organism Plan: NS AT 75 ML/HR, AZITHROMYCIN 500MG IV DAILY, ZOSYN 3.375G IV TID, XOPENEX NEB TX, TESSALON PERLES TID, AND ROBITUSSIN DM QID (2) Hypokalemia Status: Acute Plan: POTASSIUM PROTOCOL, CONTINUE TO MONITOR (3) Constipation Status: Acute Qualifiers: Constipation type: unspecified constipation type Qualified Code(s): K59.00 - Constipation, unspecified Plan: COLACE BID, MILK OF MAGNESIA 15ML QID, CONTINUE TO MONITOR (4) Dyslipidemia Status: Chronic Plan: CONTINUE HOME MEDS, CONTINUE TO MONITOR (5) Depression Status: Chronic Qualifiers: Depression Type: major depressive disorder Major depression recurrence: unspecified whether recurrent Active/Remission status: remission status unspecified Qualified Code(s): F32.9 - Major depressive disorder, single episode, unspecified Plan: CONTINUE HOME MEDS, CONTINUE TO MONITOR (6) GERD (gastroesophageal reflux disease) Status: Chronic Qualifiers: Esophagitis presence: esophagitis presence not specified Qualified Code(s): K21.9 - Gastro-esophageal reflux disease without esophagitis Plan: CONTINUE HOME MEDS, CONTINUE TO MONITOR
[2019-09-13] MEDS: ZITHROMAX INJ 500 MG VIAL 500 MG in D5W 250 ML IV 250 ML IV SCH (17:30)
[2019-09-13] MEDS: ULTRAM PO PRN (21:10)
[2019-09-13] MEDS: CRESTOR TAB 10 MG PO SCH (21:25)
[2019-09-14] MEDS: ZOSYN VIAL 3.375 GRAMS 3.375 G in NS 100 ML IV + SPIKE MINIBAG* 100 ML IV SCH ×3 (05:27→22:12)
[2019-09-14 06:34] LABS: BASOPHILS % (AUTO) 0.4 % (0.2-1.0); EOSINOPHILS # (AUTO) 0.1 x10^3/uL (0.0-0.2); EOSINOPHILS % (AUTO) 0.9 % (0.9-2.9); HEMATOCRIT 39.8 % (42.0-54.0); HEMOGLOBIN 13.5 g/dL (13.5-18.0); LYMPHOCYTES # (AUTO) 1.9 X10^3/uL (1.3-2.9); LYMPHOCYTES % (AUTO) 18.8 % (21.0-51.0); MEAN CORPUSCULAR HEMOGLOBIN 29.9 pg (27.0-34.0); MEAN CORPUSCULAR VOLUME 88.1 fL (80.0-100.0); MEAN PLATELET VOLUME 8.2 fL (7.4-11.0); MONOCYTES # (AUTO) 1.1 x10^3/uL (0.3-0.8); MONOCYTES % (AUTO) 10.6 % (0.0-13.0); NEUTROPHILS # (AUTO) 7.2 x10^3/uL (2.2-4.8); NEUTROPHILS % (AUTO) 69.3 % (42.0-75.0); PLATELET COUNT 265 X10^3/uL (150.0-450.0); RED BLOOD COUNT 4.52 X10^6/uL (4.7-6.0); RED CELL DISTRIBUTION WIDTH 13.7 % (11.6-16.5); WHITE BLOOD COUNT 10.3 X10^3/uL (3.6-10.0)
[2019-09-14 06:44] LABS: ALANINE AMINOTRANSFERASE 30 Units/L (12-78); ALBUMIN 2.5 g/dL (3.4-5.0); ALKALINE PHOSPHATASE 116 Units/L (46-116); ASPARTATE AMINO TRANSFERASE 36 Units/L (15-37); BLOOD UREA NITROGEN 9 mg/dL (7-18); CARBON DIOXIDE 27.3 mmol/L (21-32); CHLORIDE 104 mmol/L (98-107); COR CA(FOR HYPOALB) 10.2 mg/dL (8.5-10.1); CREATININE 0.79 mg/dL (0.70-1.30); SODIUM 141 mmol/L (136-145); TOTAL PROTEIN 6.9 g/dL (6.4-8.2); eGFR NON BLACK RACES > 60 (>60)
[2019-09-14] MEDS: NS 1000 ML 1,000 ML IV SCH ×2 (06:44→22:11)
[2019-09-14 07:34] LABS: ERYTHROCYTE SEDIMENTATION RATE 50 MM/HOUR (0-15)
[2019-09-14] MEDS: ULTRAM PO PRN ×3 (07:45→22:00)
[2019-09-14] MEDS: COLACE CAP 100 MG PO SCH ×2 (08:00→21:58)
[2019-09-14] MEDS: MILK OF MAGNESIA PO SCH ×4 (08:00→21:59)
[2019-09-14] MEDS: ROBITUSSIN DM PO SCH ×4 (08:48→21:57)
[2019-09-14] MEDS: ASPIRIN PO SCH (08:51)
[2019-09-14] MEDS: PriLOSEC PO SCH (08:51)
[2019-09-14] MEDS: PLAQUENIL PO SCH ×2 (08:51→21:59)
[2019-09-14] MEDS: CELEXA PO SCH (08:52)
[2019-09-14] MEDS: LOVENOX INJ 40 MG SYR SC SCH (08:52)
[2019-09-14] MEDS: K-DUR TAB 20 MEQ PO PRN (08:53)
[2019-09-14] MEDS: ZITHROMAX INJ 500 MG VIAL 500 MG in D5W 250 ML IV 250 ML IV SCH (17:29)
--- NOTE | 2019-09-14 21:34 | PCM.PROG ---
Progress Note - Progress Note for Day of Date of Exam: 09/14/19 - Subjective Subjective: IS BEING TREATED FOR PNEUMONIA. HE WAS TESTED FOR COVID- 19, RESULTS ARE PENDING. TODAY, HE IS ALERT AND ORIENTED, LYING IN BED ON MORNING ROUNDS. HE CONTINUES WITH COUGH, SHORTNESS OF BREATH, AND WEAKNESS THIS MORNING. ONLY SLIGHT IMPROVEMENT IN SYMPTOMS SINCE YESTERDAY. FAMILY REPORTS THAT HE HAS CONTINUED WITH CONFUSION AT TIMES. ON EXAMINATION, HEART IS REGULAR IN RATE AND RHYTHM. BILATERAL LUNGS ARE NOTED WITH SCATTERED WHEEZING AND RHONCHI THROUGHOUT. ABDOMEN IS ROUND, SOFT, AND NON-TENDER WITH NORMAL BOWEL SOUNDS NOTED IN ALL QUADRANTS. HIS VITALS THIS MORNING ARE: 97.3- 93-23-100%-148/89. LABS WERE OBTAINED. ABNORMAL LAB VALUES INCLUDE THE FOLLOWING: WBC 10.3, RBC 4.52, HCT 39.8, GLUCOSE 106, CALCIUM 10.2, CRP 123.40, ALBUMIN 2.5. BLOOD CULTURES ARE PENDING. HE IS CURRENTLY RECEIVING NS AT 75 ML/HR, AZITHROMYCIN 500MG IV DAILY, ZOSYN 3.375G IV TID, XOPENEX NEB TX, TESSALON PERLES TID, ROBITUSSIN DM QID, COLACE, MILK OF MAGNESIA, AND THE POTASSIUM AND MAGNESIUM PROTOCOLS. WE WILL CONTINUE WITH CURRENT PLAN OF CARE TODAY. OTHERWISE, WE PLAN TO FOLLOW UP WITH AM LABS AND CHEST XRAY AND CONTINUE TO MONITOR. - Past Medical Family Social History Past Med/Fam/Surg Hx: No changes since H&P Allergies: Allergies ciprofloxacin [From Cipro] Allergy (Verified 04/25/19 16:28) Sulfa (Sulfonamide Antibiotics) [SULFA] Allergy (Verified 04/25/19 16:28) - Review of Systems ROS: No change since H&P - Vital Signs and I&O's Vital Signs: Temperature 99.2 F Pulse Rate [Left Brachial] 80 Pulse Rate 94 Respiratory Rate 25 Blood Pressure [Left Arm] 142/63 Blood Pressure 124/69 O2 Sat by Pulse Oximetry 99 Intake and Output: Intake & Output 09/12/19 09/13/19 09/14/19 09/15/19 11:59 11:59 11:59 11:59 Intake Total 4105 / 4105 2563 / 2563 2305 / 2305 970 / 970 Balance 4105 / 4105 2563 / 2563 2305 / 2305 970 / 970 - Physical Exam Oriented: Person Eyes: Normal Ear: Normal Nose: Normal Throat: Normal Respiratory: Generalized, Wheezes, Rhonchi Cardiovascular: Normal. negative: S3, S4, Murmur : Normal Auscultation: Bowel Sounds: Normal Tenderness: Normal Skin: Normal Musculoskeletal: Normal Psychiatric: Other (CONFUSION ) Mood Description: Calm Affect: Normal Speech Pattern: Clear, Appropriate - Laboratory and Diagnostics Result Diagrams: 09/14/19 05:20 09/14/19 05:20 Labs: 09/10/19 17:21 Blood Blood Culture - Preliminary 09/10/19 17:00 Blood Blood Culture - Preliminary Laboratory WBC 10.3 X10^3/uL (3.6-10.0) H 09/14/19 05:20 RBC 4.52 X10^6/uL (4.7-6.0) L 09/14/19 05:20 Hgb 13.5 g/dL (13.5-18.0) 09/14/19 05:20 Hct 39.8 % (42.0-54.0) L 09/14/19 05:20 MCV 88.1 fL (80.0-100.0) 09/14/19 05:20 MCH 29.9 pg (27.0-34.0) 09/14/19 05:20 MCHC 34.0 g/dL (33.0-35.0) 09/14/19 05:20 RDW 13.7 % (11.6-16.5) 09/14/19 05:20 Plt Count 265 X10^3/uL (150.0-450.0) 09/14/19 05:20 MPV 8.2 fL (7.4-11.0) 09/14/19 05:20 Neut % (Auto) 69.3 % (42.0-75.0) 09/14/19 05:20 Lymph % (Auto) 18.8 % (21.0-51.0) L 09/14/19 05:20 [place] % (Auto) 10.6 % (0.0-13.0) 09/14/19 05:20 Eos % (Auto) 0.9 % (0.9-2.9) 09/14/19 05:20 Baso % (Auto) 0.4 % (0.2-1.0) 09/14/19 05:20 Neut # (Auto) 7.2 x10^3/uL (2.2-4.8) H 09/14/19 05:20 Lymph # (Auto) 1.9 X10^3/uL (1.3-2.9) 09/14/19 05:20 [place] # (Auto) 1.1 x10^3/uL (0.3-0.8) H 09/14/19 05:20 Eos # (Auto) 0.1 x10^3/uL (0.0-0.2) 09/14/19 05:20 Baso # (Auto) 0.0 X10^3/uL (0.0-0.1) 09/14/19 05:20 Absolute Nucleated RBC 0.0 /100WBC 09/14/19 05:20 ESR 50 MM/HOUR (0-15) H 09/14/19 05:20 Sample Site L rad 09/10/19 19:35 ABG pH 7.440 (7.35-7.45) 09/10/19 19:35 ABG pCO2 41.0 mmHg (35.0-45.0) 09/10/19 19:35 ABG pO2 82.0 mmHg (80.0-100.0) 09/10/19 19:35 ABG HCO3 27.8 mmol/L (22-26) H 09/10/19 19:35 ABG O2 Saturation 96.0 % (90-100) 09/10/19 19:35 ABG Base Excess 3.3 mmol/L (-2.0-2.0) H 09/10/19 19:35 Carson Test Poss 09/10/19 19:35 A-a Gradient 16.0 mmHg 09/10/19 19:35 FiO2 21.0 09/10/19 19:35 Blood Gas Comments Estela well kb 09/10/19 19:35 Sodium 141 mmol/L (136-145) 09/14/19 05:20 Corrected Sodium TNP 09/14/19 05:20 Potassium 3.6 mmol/L (3.5-5.1) 09/14/19 05:20 Chloride 104 mmol/L (98-107) 09/14/19 05:20 Carbon Dioxide 27.3 mmol/L (21-32) 09/14/19 05:20 BUN 9 mg/dL (7-18) 09/14/19 05:20 Creatinine 0.79 mg/dL (0.70-1.30) 09/14/19 05:20 Est GFR (MDRD) Af Amer > 60 (>60) 09/14/19 05:20 Est GFR (MDRD) Non-Af > 60 (>60) 09/14/19 05:20 Glucose 106 mg/dL (65-99) H 09/14/19 05:20 Calcium 9.0 mg/dL (8.5-10.1) 09/14/19 05:20 Corrected Calcium 10.2 mg/dL (8.5-10.1) H 09/14/19 05:20 Magnesium 2.1 mg/dL (1.7-2.9) 09/13/19 05:33 Total Bilirubin 0.50 mg/dL (0.2-1.0) 09/14/19 05:20 AST 36 Units/L (15-37) 09/14/19 05:20 ALT 30 Units/L (12-78) 09/14/19 05:20 Alkaline Phosphatase 116 Units/L (46-116) 09/14/19 05:20 Creatine Kinase 224 Units/L (39-308) 09/10/19 17:00 CK-MB (CK-2) 1.3 ng/mL (0-4.0) 09/10/19 17:00 CK/CKMB % Calc 0.6 % (<4) 09/10/19 17:00 Troponin I < 0.02 ng/mL (0-1.5) 09/10/19 17:00 C-Reactive Protein 123.40 mg/L (0-3.0) H 09/14/19 05:20 Total Protein 6.9 g/dL (6.4-8.2) 09/14/19 05:20 Albumin 2.5 g/dL (3.4-5.0) L 09/14/19 05:20 Globulin 4.4 g/dL (2.5-4.5) 09/14/19 05:20 Albumin/Globulin Ratio 0.6 Ratio (1.1-2.1) L 09/14/19 05:20 Specimen Type Clean catch urine 09/10/19 23:10 Urine Color [place] (YELLOW) 09/10/19 23:10 Urine Appearance Hazy (CLEAR) 09/10/19 23:10 Urine pH 6.0 (5.0 - 8.0) 09/10/19 23:10 Ur Specific [place] 1.025 (1.000-1.030) 09/10/19 23:10 Urine Protein 3+ (NEGATIVE) 09/10/19 23:10 Urine Glucose (UA) Negative (NEGATIVE) 09/10/19 23:10 Urine Ketones 1+ (NEGATIVE) 09/10/19 23:10 Urine Occult Blood 2+ (NEGATIVE) 09/10/19 23:10 Urine Nitrite Negative (NEGATIVE) 09/10/19 23:10 Urine Bilirubin Negative (NEGATIVE) 09/10/19 23:10 Urine Urobilinogen 2+ (NORMAL) 09/10/19 23:10 Ur Leukocyte Esterase 1+ (NEGATIVE) 09/10/19 23:10 Urine RBC 0-2 /HPF (0-3) 09/10/19 23:10 Urine WBC 3-5 /HPF (0-5) 09/10/19 23:10 Ur Squamous Epith Cells Rare /HPF (NEGATIVE) 09/10/19 23:10 Urine Bacteria Trace /HPF (NEGATIVE) 09/10/19 23:10 Ur Culture Indicated? No/not indicated 09/10/19 23:10 Influenza Type A Ag Negative-presumptive (NEGATIVE) 09/10/19 17:10 Influenza Type B Ag Negative-presumptive (NEGATIVE) 09/10/19 17:10 S. pyogenes (TEM-PCR) Not detected (NOT DETECT) 09/10/19 17:10 - Plan (1) Pneumonia Status: Acute Qualifiers: Pneumonia type: due to unspecified organism Laterality: right Lung location: lower lobe of lung Qualified Code(s): J18.9 - Pneumonia, unspecified organism Plan: NS AT 75 ML/HR, AZITHROMYCIN 500MG IV DAILY, ZOSYN 3.375G IV TID, XOPENEX NEB TX, TESSALON PERLES TID, AND ROBITUSSIN DM QID (2) Hypokalemia Status: Acute Plan: POTASSIUM PROTOCOL, CONTINUE TO MONITOR (3) Constipation Status: Acute Qualifiers: Constipation type: unspecified constipation type Qualified Code(s): K59.00 - Constipation, unspecified Plan: COLACE BID, MILK OF MAGNESIA 15ML QID, CONTINUE TO MONITOR (4) Dyslipidemia Status: Chronic Plan: CONTINUE HOME MEDS, CONTINUE TO MONITOR (5) Depression Status: Chronic Qualifiers: Depression Type: major depressive disorder Major depression recurrence: unspecified whether recurrent Active/Remission status: remission status unspecified Qualified Code(s): F32.9 - Major depressive disorder, single episode, unspecified Plan: CONTINUE HOME MEDS, CONTINUE TO MONITOR (6) GERD (gastroesophageal reflux disease) Status: Chronic Qualifiers: Esophagitis presence: esophagitis presence not specified Qualified Code(s): K21.9 - Gastro-esophageal reflux disease without esophagitis Plan: CONTINUE HOME MEDS, CONTINUE TO MONITOR
[2019-09-14] MEDS: CRESTOR TAB 10 MG PO SCH (21:58)
[2019-09-14] MEDS: ELAVIL PO SCH (21:59)
[2019-09-15] MEDS: ZOSYN VIAL 3.375 GRAMS 3.375 G in NS 100 ML IV + SPIKE MINIBAG* 100 ML IV SCH (05:23)
--- NOTE | 2019-09-15 05:52 | RAD ---
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 Exam is limited due to poor inspiratory effort similar appearance to the prior study. Marked elevation the right hemidiaphragm is seen similar to prior study. No focal consolidation is seen in the visualized aerated lung parenchyma. No pleural effusion or gross pneumothorax is seen.IMPRESSION:There is no significant change from prior studyElectronically signed by: Jean Kelley (Sep 15, 2019 05:51:05)
[2019-09-15 06:38] LABS: BASOPHILS % (AUTO) 0.4 % (0.2-1.0); EOSINOPHILS # (AUTO) 0.3 x10^3/uL (0.0-0.2); EOSINOPHILS % (AUTO) 2.1 % (0.9-2.9); HEMATOCRIT 38.7 % (42.0-54.0); HEMOGLOBIN 13.1 g/dL (13.5-18.0); LYMPHOCYTES # (AUTO) 1.8 X10^3/uL (1.3-2.9); LYMPHOCYTES % (AUTO) 14.6 % (21.0-51.0); MEAN CORPUSCULAR HEMOGLOBIN 29.7 pg (27.0-34.0); MEAN CORPUSCULAR HGB CONC 33.7 g/dL (33.0-35.0); MEAN CORPUSCULAR VOLUME 88.1 fL (80.0-100.0); MEAN PLATELET VOLUME 8.2 fL (7.4-11.0); MONOCYTES # (AUTO) 1.3 x10^3/uL (0.3-0.8); MONOCYTES % (AUTO) 10.3 % (0.0-13.0); NEUTROPHILS % (AUTO) 72.6 % (42.0-75.0); PLATELET COUNT 301 X10^3/uL (150.0-450.0); RED CELL DISTRIBUTION WIDTH 13.8 % (11.6-16.5); WHITE BLOOD COUNT 12.3 X10^3/uL (3.6-10.0)
[2019-09-15 07:04] LABS: ALANINE AMINOTRANSFERASE 31 Units/L (12-78); ALBUMIN 2.4 g/dL (3.4-5.0); ALKALINE PHOSPHATASE 109 Units/L (46-116); ASPARTATE AMINO TRANSFERASE 32 Units/L (15-37); BLOOD UREA NITROGEN 15 mg/dL (7-18); CALCIUM 8.8 mg/dL (8.5-10.1); CARBON DIOXIDE 26.8 mmol/L (21-32); CHLORIDE 104 mmol/L (98-107); COR CA(FOR HYPOALB) 10.1 mg/dL (8.5-10.1); COR NA(FOR HYPERGLY) 140 mmol/L (136-145); CREATININE 0.96 mg/dL (0.70-1.30); SODIUM 140 mmol/L (136-145); TOTAL PROTEIN 6.5 g/dL (6.4-8.2); eGFR NON BLACK RACES > 60 (>60)
[2019-09-15 07:37] LABS: ERYTHROCYTE SEDIMENTATION RATE 36 MM/HOUR (0-15)
[2019-09-15] MEDS: ASPIRIN PO SCH (08:56)
[2019-09-15] MEDS: CELEXA PO SCH (08:57)
[2019-09-15] MEDS: PriLOSEC PO SCH (08:57)
[2019-09-15] MEDS: LOVENOX INJ 40 MG SYR SC SCH (08:58)
[2019-09-15] MEDS: COLACE CAP 100 MG PO SCH (08:58)
[2019-09-15] MEDS: MILK OF MAGNESIA PO SCH ×2 (09:00→12:10)
[2019-09-15] MEDS: ROBITUSSIN DM PO SCH ×2 (09:00→12:10)
[2019-09-15] MEDS: PLAQUENIL PO SCH (09:01)
[2019-09-15 13:41] VITALS: BP 124/77
== END 2019-09-15 13:45 | disposition home health service (06) | DRG 195 ==
LOC: ER 16:46 → ICU 17:59
PROVIDERS: ADMIT Internal Medicine; ATTEND Internal Medicine
DX: J18.9 Pneumonia, unspecified organism; Z11.59 Encounter for screening for other viral diseases; R26.89 Other abnormalities of gait and mobility; E78.2 Mixed hyperlipidemia; K21.9 Gastro-esophageal reflux disease without esophagitis; E87.6 Hypokalemia; F32.89 Other specified depressive episodes; I25.10 Atherosclerotic heart disease of native coronary artery without angina pectoris; R06.02 Shortness of breath; I10 Essential (primary) hypertension; R94.31 Abnormal electrocardiogram [ECG] [EKG]; R50.9 Fever, unspecified; K59.09 Other constipation

== ENCOUNTER 2020-06-03 15:50 | Inpatient (IN) ==
[2020-06-03 16:03] VITALS: BMI 28.7
--- NOTE | 2020-06-03 16:22 | DR.GENAD ---
HPI - PCP Primary Care Physician: DR GRAHAM - Complaint/Symptoms Chief Complaint Doctors Comments: Patient is complaining of nausea with progressive weakness for the past 3-4 days. He denies chest pain but has been having SOB. He denies changes in his smell or taste. States he tested negative for the COVID virus on 05/16/20 and had his first COVID vaccination last . States he is a patient of Dr. Graham and has taken a Z-oneil with steriods and on an antibiotic for 14 days. He denies tobacco, alcohol or drug usage. states his appetite has decreased but he is still eating without problems. States he has not seen Dr. Graham recently but has been taking his me dicines. Chief Complaint:: PT C/O 1 WEEK OF PROGRESSIVELY WORSENEING GENERALIZED WEAKNESS, NAUSEA, VOMITING, AND SHORTNESS OF BREATH Self Treatment fo Chief Complaint: PT WAS RAPID COVID TESTED WITH PCP ON 05/16/20 AND WAS COVID NEGATIVE. PT RECEIVED COVID VACCINE ON LAST FRIDAY. - COVID-19 Coronavirus risk:travel/contact w/high risk person: No Has patient experienced Coronavirus symptoms: Yes Coronavirus symptoms experienced: Coughing, Shortness of Breath - Nurses notes reviewed Nurses Notes Review: Yes - Source History Provided: Patient - Mode of Arrival Mode of Arrival: Ambulatory - Timing Onset of Chief Complaint: 05/29/20 Came on: Gradually - Duration Duration: Constant How lon Duration: Days - Location Location: shortness of breath, cough - Severity Severity: Moderate - Modifying Factors Worsens:: exertion Improves:: nothing PMH - PMH Past Medical History: Yes Past Medical History: Anxiety, Coronary Artery Disease, Depression, Dysli pidemia, GERD, Hypertension Past Medical History Comment: CEREBRAL HEMORRHAGE Past Surgical History: Yes Surgical History: Angioplasty/Stents, CABG/Valve Surgery - Family History History of Family Medical Conditions: Yes Family Medical History: [place], Coronary Artery Disease - Social History Does patient currently use any type of tobacco product: No Have you used tobacco products in the last 12 months: No Type of Tobacco Use: None Does any household member use tobacco: No Alcohol Use: None Do you use any recreational Drugs:: No Lives With: Family Lives Where: Home - Travel Risk Coronavirus risk:travel/contact w/high risk person: No Has patient experienced Coronavirus symptoms: Yes Coronavirus symptoms experienced: Coughing, Shortness of Breath - infectious screening In the last 2 months have you had wt loss of >10#?: NO Have you had fever, night sweats or hemotysis?: No Have you traveled outside the country in the last 6 months?: No Isolation: Standard ROS - Review of Systems Constitutional: No Symptoms Reported, Weakness, Loss of Appetite Eyes: No Symptoms Reported ENTM: No Symptoms Reported Respiratoy: No Symptoms Reported, Non-Productive Cough, Short of Breath Cardiovascular: No Symptoms Reported. negative: See HPI, Chest Pain, Edema, Palpitations, Syncope, Cyanosis, Skin Mottling, Other Gastrointestinal/Abdominal: No Symptoms Reported, Nausea. negative: See HPI, Abdominal Pain, Constipation, Diarrhea, Vomiting, Food Intolerance, Other Genitourinary: No Symptoms Reported. negative: See HPI, Discharge, Dysuria, Frequency, Hematuria, Pain, Bleeding, Other Neurological: No Symptoms Reported Musculoskeletal: No Symptoms Reported. negative: See HPI, Back Pain, Gout, Joint Pain, Joint Swelling, Muscle Pain, Muscle Stiffness, Neck Pain, Right, Left, Neck, Chest wall, Rib(s), Back, Shoulder, Arm, Elbow, Forearm, Wrist, Hand, Pelvis, Hip, Leg, Knee, Ankle, Foot, Other Integumentary: No Symptoms Reported. negative: See HPI, Change in Color, Change in Hair/Nails, Dryness, Lesions, Lumps, Rash, Itching, Wound, Bruises, Juandice, Other Hematologic/Lymphatic: No Symptoms Reported. negative: See HPI, Anemia, Blood Clots, Easy Bleeding, Easy Bruising, Swollen Glands, Lymphadenopathy, Other Endocrine: No Symptoms Reported Psychiatric: No Symptoms Reported. negative: See HPI, Anxiety, Depression, Hallucinations, Excessive crying, Suicidal, Other PE - General Limitations: No Limitations General Appearance: Alert, In Distress (slight) - Head Head Exam: Normal Inspection, Atraumatic, Normocephalic - Eyes Eye exam: Normal Appearance, PERRL, EOMI. negative: Scleral Icterus, Con junctival Injection, Nystagmus, Miosis, Mydrasis, Periorbital Swelling, Periorbital Tenderness, Other - ENT ENT Exam: Normal Exam, Normal Oropharynx, Normal External Ear Exam, Mucous Membranes Moist, TM's Normal Bilaterally External Ear Exam: Normal External Inspection TM/Canal Exam: Bilateral Normal Nose Exam: Normal Nose Exam Mouth Exam: Normal Inspection Throat Exam: Normal Inspection - Neck Neck Exam: Normal Inspection, Full ROM, Trachea Midline. negative: Tenderness, Meningismus, Lymphadenopathy, Thyromegaly, Other - Chest Chest Inspection: Normal Inspection, Symmetric Chest Wall Rise. negative: Tenderness, Rash, Abscess, Other - Respiratory Respiratory Exam: Normal Lung Sounds Bilat Respiratory Exam: Bilateral Clear to Auscultation, Right Rales - Cardiovascular Cardiovascular Exam: Regular Rate, Normal Rhythm, Normal Heart Sounds - Abdominal Exam Abdominal Exam: Normal Inspection, Normal Bowel Sounds, Soft. negative: Distention, Tenderness, Guarding, Rebound, Rigidity, Dimnished Bowel Sounds, Hyperactive Bowel Sounds, Hypoactive Bowel Sounds, Organomegaly, Trauma, Incision, Ascites, Mass, Bruit, Pulsatile Mass, Hernia, Other Abdominal Tenderness: negative: RUQ, RLQ, LUQ, LLQ, Epigastrium, Suprapubic, Diffuse, Mild, Moderate, Severe, Other - Extremities Extremities Exam: Normal Inspection, Full ROM, Normal Capillary Refill. negative: Tenderness, Edema, Joint Swelling, Calf Tenderness, Other - Back Back Exam: Normal Inspection, Full ROM. negative: Tenderness, (R) CVA Tenderness, (L) CVA Tenderness, Muscle Spasm, Paraspinal Tenderness, Vertebral Tenderness, Rashes, (R) Sciatic Notch Tenderness, (L) Sciatic Notch Tendern, (R) Straight Leg Raise, (L) Straight Leg Raise, Other - Neurologic Neurological Exam: Alert, Oriented X3, CN II-XII Intact, Reflexes Normal. negative: Normal Gait (gait not tested) - Psychiatric Psychiatric Exam: Normal Affect, Normal Mood. negative: Depressed, Agitated, Anxious, Flat Affect, Manic, Homicidal Ideation, Suicidal Ideation, Other - Skin Skin Exam: Warm, Dry, Intact, Normal Color. negative: Rash, Cyanosis, Diaphoresis, Erythema, Pallor, Mottled, Other - Vital Signs Vitals: Temperature 98.2 F Pulse Rate [Radial] 88 Pulse Rate 92 Respiratory Rate 20 Blood Pressure [Left Arm] 88/51 Blood Pressure 106/59 O2 Sat by Pulse Oximetry 94 Course - Reevaluation 1st: Improved (Patient with cough but denies nausea, vomting or stomach pain) 2nd: Worsened (Patient with BP 89/41 while getting IV bolus. States he feels a little better now that he did when he came in but not much better. 2135.) - Consultation Called: 21:06 (Dr. Morales called patient discussed states to admit.) Call Returned: 20:54 (A Kim called will admit patient) - Education/Counseling Education/Counseling: Patient, Family Educated On: Treatment, Diagnosis, Needs for Follow Up ROR - Labs Reviewed Laboratory Results Reviewed?: Yes (All labs and x-ray results reviewed and discussed with patient and spouse) Result Diagrams: 06/03/20 16:35 06/03/20 16:35 - XRAY XRAY Interpreted by: Radiologist (CXR: No significant change or acute abnormaity. COon interposition between the liver and the right diaphram.) - EKG Rate: 93 [place]: Normal Rhythm: NSR Block: None Hypertrophy: None ST: Nonsp - Labs Reviewed Laboratory: WBC 16.5 X10^3/uL (3.6-10.0) H 06/03/20 16:35 RBC 4.61 X10^6/uL (4.7-6.0) L 06/03/20 16:35 Hgb 13.8 g/dL (13.5-18.0) 06/03/20 16:35 Hct 41.7 % (42.0-54.0) L 06/03/20 16:35 MCV 90.6 fL (80.0-100.0) 06/03/20 16:35 MCH 29.9 pg (27.0-34.0) 06/03/20 16:35 MCHC 33.0 g/dL (33.0-35.0) 06/03/20 16:35 RDW 14.8 % (11.6-16.5) 06/03/20 16:35 Plt Count 271 X10^3/uL (150.0-450.0) 06/03/20 16:35 MPV 7.8 fL (7.4-11.0) 06/03/20 16:35 Neut % (Auto) 86.2 % (42.0-75.0) H 06/03/20 16:35 Lymph % (Auto) 6.5 % (21.0-51.0) L 06/03/20 16:35 [place] % (Auto) 6.5 % (0.0-13.0) 06/03/20 16:35 Eos % (Auto) 0.2 % (0.9-2.9) L 06/03/20 16:35 Baso % (Auto) 0.6 % (0.2-1.0) 06/03/20 16:35 Neut # (Auto) 14.2 x10^3/uL (2.2-4.8) H 06/03/20 16:35 Lymph # (Auto) 1.1 X10^3/uL (1.3-2.9) L 06/03/20 16:35 [place] # (Auto) 1.1 x10^3/uL (0.3-0.8) H 06/03/20 16:35 Eos # (Auto) 0.0 x10^3/uL (0.0-0.2) 06/03/20 16:35 Baso # (Auto) 0.1 X10^3/uL (0.0-0.1) 06/03/20 16:35 Absolute Nucleated RBC 0.0 /100WBC 06/03/20 16:35 PT 14.7 SECONDS (11.8-14.3) 06/03/20 16:35 INR Target Range - 06/03/20 16:35 INR 1.18 (0.8-1.3) 06/03/20 16:35 APTT 35.3 SECONDS (22.9-36.5) 06/03/20 16:35 PTT Comment - 06/03/20 16:35 D-Dimer 1.59 ug/ml (0.0-0.57) H* 06/03/20 16:35 Sodium 139 mmol/L (136-145) 06/03/20 16:35 Corrected Sodium TNP 06/03/20 16:35 Potassium 4.3 mmol/L (3.5-5.1) 06/03/20 16:35 Chloride 103 mmol/L (98-107) 06/03/20 16:35 Carbon Dioxide 27.5 mmol/L (21-32) 06/03/20 16:35 BUN 17 mg/dL (7-18) 06/03/20 16:35 Creatinine 1.02 mg/dL (0.70-1.30) 06/03/20 16:35 Est GFR (MDRD) Af Amer > 60 (>60) 06/03/20 16:35 Est GFR (MDRD) Non-Af > 60 (>60) 06/03/20 16:35 Glucose 108 mg/dL (65-99) H 06/03/20 16:35 Calcium 8.8 mg/dL (8.5-10.1) 06/03/20 16:35 Corrected Calcium 9.9 mg/dL (8.5-10.1) 06/03/20 16:35 Magnesium 1.8 mg/dL (1.7-2.9) 06/03/20 16:35 Ferritin 170 ng/mL (26-388) 06/03/20 16:35 Total Bilirubin 0.80 mg/dL (0.2-1.0) 06/03/20 16:35 AST 21 Units/L (15-37) 06/03/20 16:35 ALT 24 Units/L (12-78) 06/03/20 16:35 Alkaline Phosphatase 91 Units/L (46-116) 06/03/20 16:35 Creatine Kinase 40 Units/L (39-308) 06/03/20 16:35 CK-MB (CK-2) < 1.0 ng/mL (0-4.0) 06/03/20 16:35 CK/CKMB % Calc 2.5 % (<4) 06/03/20 16:35 Troponin I < 0.02 ng/mL (0-1.5) 06/03/20 16:35 C-Reactive Protein 54.60 mg/L (0-3.0) H 06/03/20 16:35 Total Protein 6.7 g/dL (6.4-8.2) 06/03/20 16:35 Albumin 2.6 g/dL (3.4-5.0) L 06/03/20 16:35 Globulin 4.1 g/dL (2.5-4.5) 06/03/20 16:35 Albumin/Globulin Ratio 0.6 Ratio (1.1-2.1) L 06/03/20 16:35 Amylase 30 Units/L (25-115) 06/03/20 16:35 Lipase 72 Units/L (73-393) L 06/03/20 16:35 SARS CoV-2 RNA Rapid ZAID Negative (NEGATIVE) 06/03/20 17:28 - XRAY Xray Findings: CT abdomen/pelvis: Irregular circumferential thickening of the ascending colon over a length of at least 5 cm with adjacent pericolonic stranding resuting in narrowing of the inner lumen diameter concerning for potential colonic neoplasm. Focal colitis may be similar. Cholelithiasis without evidence of acute cholecystitis. Multiple small cystic lesions of the bilateral kidneys, right more so than left. Diffuse atheromatous disease of the [place] coronary arteries, aorta and major mesenteric/iliac tributaries. Moderate elevation of the right diaphragm with associated with compressive atelectasis of the posterior right lung base. CTA chest: No eviedence for pumonary embolic disease. Severe coronary and aortic atheroscerosis No evidence for aortic aneurysm or aortic dissection. Consolidative atelectasis/coapse within the anterior segment of the right lower lobe with air bronchograms. Choelithiasis. Up to 2.6 cm eccentric circumferential thickening of the ascending colon. (JORGE L BISHOP) Opioid - Opioid Risk Tool Age ([place]mo box if 16-45): No History of Preadolescent Sexual Abuse: No Total: 0 Total Score Risk Category: Low Risk - Diagnosis Discharge Problem: Weakness generalized, Atelectasis of right lung, Lesion of colon, Bronchitis Dyspnea Qualifiers: Dyspnea type: dyspnea on exertion Qualified Code(s): R06.00 - Dyspnea, u nspecified Cholelithiasis Qualifiers: Cholecystitis acuity: unspecified acuity Leukocytosis Qualifiers: Leukocytosis type: unspecified Qualified Code(s): D72.829 - Elevated white blood cell count, unspecified Hypotension Qualifiers: Hypotension type: idiopathic hypotension Qualified Code(s): I95.0 - Idiopathic hypotension - Discharge Plan Disposition: 09 ADMITTED INPATIENT Condition: Stable
[2020-06-03] MEDS ORDERED: ZOFRAN INJ 4 MG VIAL IVP ONE (16:30)
[2020-06-03] MEDS ORDERED: NS 1000 ML 1,000 ML ONE ×3 (16:30→21:03)
[2020-06-03] MEDS ORDERED: ZOFRAN INJ 4 MG VIAL ONE (16:46)
[2020-06-03 16:49] LABS: BASOPHILS # (AUTO) 0.1 X10^3/uL (0.0-0.1); BASOPHILS % (AUTO) 0.6 % (0.2-1.0); EOSINOPHILS % (AUTO) 0.2 % (0.9-2.9); HEMATOCRIT 41.7 % (42.0-54.0); HEMOGLOBIN 13.8 g/dL (13.5-18.0); LYMPHOCYTES # (AUTO) 1.1 X10^3/uL (1.3-2.9); LYMPHOCYTES % (AUTO) 6.5 % (21.0-51.0); MEAN CORPUSCULAR HEMOGLOBIN 29.9 pg (27.0-34.0); MEAN CORPUSCULAR VOLUME 90.6 fL (80.0-100.0); MEAN PLATELET VOLUME 7.8 fL (7.4-11.0); MONOCYTES # (AUTO) 1.1 x10^3/uL (0.3-0.8); MONOCYTES % (AUTO) 6.5 % (0.0-13.0); NEUTROPHILS # (AUTO) 14.2 x10^3/uL (2.2-4.8); NEUTROPHILS % (AUTO) 86.2 % (42.0-75.0); PLATELET COUNT 271 X10^3/uL (150.0-450.0); RED BLOOD COUNT 4.61 X10^6/uL (4.7-6.0); RED CELL DISTRIBUTION WIDTH 14.8 % (11.6-16.5); WHITE BLOOD COUNT 16.5 X10^3/uL (3.6-10.0)
[2020-06-03] MEDS ORDERED: NS 1000 ML 1,000 ML IV SCH (17:00)
--- NOTE | 2020-06-03 17:03 | RAD ---
HISTORYChest painSTUDYPortable AP [id number]/06/2020FINDINGSThe heart is stable and considered upper normal. There is elevation of the right diaphragm with colon interposition between the right diaphragm and the liver. This diaphragm elevation results in obscuration of the right lower lung. There is no obvious CHF or pneumonia or pleural fluid.IMPRESSIONNo significant change or acute abnormality. 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
[2020-06-03 17:07] LABS: BLOOD UREA NITROGEN 17 mg/dL (7-18); CALCIUM 8.8 mg/dL (8.5-10.1); CARBON DIOXIDE 27.5 mmol/L (21-32); CHLORIDE 103 mmol/L (98-107); CREATININE 1.02 mg/dL (0.70-1.30); SODIUM 139 mmol/L (136-145); TROPONIN I < 0.02 ng/mL (0-1.5); eGFR NON BLACK RACES > 60 (>60)
[2020-06-03 17:11] LABS: ALANINE AMINOTRANSFERASE 24 Units/L (12-78); ALBUMIN 2.6 g/dL (3.4-5.0); ALKALINE PHOSPHATASE 91 Units/L (46-116); AMYLASE 30 Units/L (25-115); ASPARTATE AMINO TRANSFERASE 21 Units/L (15-37); CKMB % 2.5 % (<4); COR CA(FOR HYPOALB) 9.9 mg/dL (8.5-10.1); CREATINE KINASE 40 Units/L (39-308); CREATINE KINASE MB < 1.0 ng/mL (0-4.0); LIPASE 72 Units/L (73-393); MAGNESIUM 1.8 mg/dL (1.7-2.9); TOTAL PROTEIN 6.7 g/dL (6.4-8.2)
[2020-06-03] MEDS ORDERED: NS 100 ML IV 100 ML IV ONE (17:37)
--- NOTE | 2020-06-03 18:39 | CT ---
HISTORYVomiting, abdominal painSTUDYCT ABDOMEN AND PELVIS WITHOUT IV CONTRASTCOMPARISONNo recent comparison studiesTECHNIQUEAxial CT was acquired from the lung bases through the pelvis WITHOUT IV contrast; multiplaner reformats are generated from the original axial data.FINDINGSThere is elevation of the right diaphragm associated with localized compressive atelectasis within the posterior margin of the right lower lobe. There are extensive atherosclerotic changes of the [place] coronary arteries in a patient who is had a prior bypass procedure. There is evidence of cholelithiasis without cholecystitis. Liver attenuation is predominantly homogeneous. Spleen is average size. There is fatty infiltration of the pancreas. The adrenal glands are symmetric. There is no hydronephrosis of the right kidney or the left kidney. No radiopaque renal calculi or findings of acute obstruction. There are several small cystic lesions of the bilateral kidneys, right more so than left, a few of which are indeterminate by Hounsfield unit measurements, appearing hyperdense overall. Atheromatous changes are demonstrated within the abdominal aorta and mesenteric tributaries of moderate severity. Several mesenteric branches also demonstrate advanced atherosclerotic disease. This includes the superior mesenteric artery and bilateral renal arteries.There is abnormal thickening associated with the ascending colon. Circumferential thickening of the ascending colon is observed over the course of several cm with adjacent pericolonic stranding. A normal appendix is observed separately. Beyond this point, there is no irregular colonic wall thickening identified. The bowel gas pattern is nonobstructive overall. The bladder is contracted. The prostate gland is average size for age. No pelvic lymphadenopathy or free fluid is identified. Evaluation of the osseous structures reveals no aggressive bony lesions or acute osseous abnormalities. Degenerative findings consist of extensive multilevel degenerative disc disease, spondylosis and facet arthropathy.IMPRESSIONIrregular circumferential thickening of the ascending colon over a length of at least 5 cm with adjacent pericolonic stranding resulting in narrowing of the inner lumen diameter. This is highly concerning for potential colonic neoplasm. Focal colitis may appear similar but ultimately follow-up colonoscopy will be necessary for diagnostic workup.Cholelithiasis without evidence of acute cholecystitis.Multiple small cystic lesions of the bilateral kidneys, right more so than left. A few indeterminate hyperdense lesions which may represent small hemorrhagic, proteinaceous, and/or partially calcified cyst. These may be further characterized with targeted outpatient ultrasound, as clinically warranted.Diffuse atheromatous disease of the [place] coronary arteries, aorta, and major mesenteric/iliac tributaries, as described above.Moderate elevation of the right diaphragm with associated with compressive atelectasis of the posterior right lung base.Radiation dose reduction was achieved through individualized adjustment of kVP and/or mA, through adaptive statistical iterative reconstruction, and/or through automated tube current modulation.Electronically signed by: PAULINA PINEDO (Jun 03, 2020 18:34:17)
--- NOTE | 2020-06-03 18:51 | CT ---
EXAM: CTA CHEST WITH INTRAVENOUS CONTRASTHISTORY: Elevated D-dimer. 1 week of progressively worsening generalized weakness. Shortness of breath. Nausea. Vomiting.TECHNIQUE: Spiral axial CT images are obtained through the chest with the administration of intravenous contrast. Coronal, sagittal and 3D MIP images are reformatted.DOSIMETRY: Total DLP 605.7 mGycm; CTDI 37.8 mGyCOMPARISON: None available.FINDINGS:CARDIOVASCULAR: There is no evidence for pulmonary embolic disease. There is severe coronary and aortic atherosclerosis. Status post median sternotomy, presumably for CABG. No aortic aneurysm or dissection is seen. The heart size is within normal limits. No pericardial effusion is seen.MEDIASTINUM AND DAVID: No mass lesion, lymphadenopathy, emphysema, or abnormal fluid collection is seen.LUNGS: There is a large area of consolidative atelectasis/collapse within the anterior segment of the right lower lobe with air bronchograms. There is no lung mass, lung nodule, or endobronchial obstructing lesion seen. No pleural effusion or pneumothorax is evident.CHEST WALL: There are no chest wall lesions seen. The visualized bony structures are within normal limits. No axillary lymphadenopathy is noted.UPPER ABDOMEN: There is cholelithiasis, in keeping with sequela of chronic cholecystitis. There is up to 2.6 cm eccentric circumferential thickening of the ascending colon; DDx includes focal colitis and neoplastic disease (colon cancer). Clinical correlation is advised. Axial image 57?95; coronal image 46?72.IMPRESSION:1. No evidence for pulmonary embolic disease.2. Severe coronary and aortic atherosclerosis. Status post median sternotomy, presumably for CABG.3. No evidence for aortic aneurysm or aortic dissection.4. Consolidative atelectasis/collapse within the anterior segment of the right lower lobe with air bronchograms.5. No endobronchial obstructing lesion, acute parenchymal infiltrate, pleural effusion, or pneumothorax seen.6. Cholelithiasis, in keeping with sequela of chronic cholecystitis.7. Up to 2.6 cm eccentric circumferential thickening of the ascending colon; DDx includes focal colitis and neoplastic disease (colon cancer). Clinical correlation is advised. Axial image 57?95; coronal image 46?72.Electronically signed by: Rupesh Moreno (Jun 03, 2020 18:49:01)
[2020-06-03] MEDS ORDERED: NS 1000 ML 1,000 ML IV ONE ×2 (19:25→21:05)
[2020-06-03] MEDS ORDERED: ROCEPHIN VIAL 1 GRAM 1 G in NS 100 ML IV + SPIKE MINIBAG* 100 ML IV ONE (19:26)
[2020-06-03] MEDS ORDERED: FLAGYL IV PREMIX 500 MG BAG 500 MG/100 ML BAG IV ONE ×2 (19:26→20:41)
[2020-06-03] MEDS ORDERED: ROCEPHIN 1 GRAM IV PREMIX 1 G/50 ML IV.SOLN. IV ONE (19:36)
[2020-06-03] MEDS ORDERED: TYLENOL 325 MG TAB PO PRN (21:00)
[2020-06-03] MEDS ORDERED: ZOFRAN INJ 4 MG VIAL IVP PRN (21:00)
[2020-06-03] MEDS ORDERED: PERCOCET TAB 5/325 MG PO PRN (21:00)
[2020-06-03] MEDS ORDERED: PEPCID 20 MG IV PREMIX* 20 MG/50 ML BAG IV PRN (21:00)
[2020-06-03] MEDS ORDERED: MORPHINE SULFATE INJ 2 MG INJ IVP PRN (21:00)
[2020-06-03] MEDS ORDERED: DOPAMINE IV PREMIX 400 MG/250 ML 400 MG/250 ML BAG IV PRN (21:35)
[2020-06-04 06:10] LABS: BASOPHILS % (AUTO) 0.2 % (0.2-1.0); EOSINOPHILS % (AUTO) 0.1 % (0.9-2.9); HEMATOCRIT 36.1 % (42.0-54.0); HEMOGLOBIN 11.8 g/dL (13.5-18.0); LYMPHOCYTES % (AUTO) 6.2 % (21.0-51.0); MEAN CORPUSCULAR HEMOGLOBIN 29.6 pg (27.0-34.0); MEAN CORPUSCULAR HGB CONC 32.7 g/dL (33.0-35.0); MEAN CORPUSCULAR VOLUME 90.6 fL (80.0-100.0); MEAN PLATELET VOLUME 8.2 fL (7.4-11.0); MONOCYTES # (AUTO) 1.2 x10^3/uL (0.3-0.8); NEUTROPHILS # (AUTO) 13.2 x10^3/uL (2.2-4.8); NEUTROPHILS % (AUTO) 85.5 % (42.0-75.0); PLATELET COUNT 216 X10^3/uL (150.0-450.0); RED BLOOD COUNT 3.99 X10^6/uL (4.7-6.0); RED CELL DISTRIBUTION WIDTH 15.1 % (11.6-16.5); WHITE BLOOD COUNT 15.4 X10^3/uL (3.6-10.0)
[2020-06-04 06:16] LABS: BLOOD UREA NITROGEN 12 mg/dL (7-18); CALCIUM 8.3 mg/dL (8.5-10.1); CHLORIDE 105 mmol/L (98-107); COR NA(FOR HYPERGLY) 137 mmol/L (136-145); CREATININE 0.81 mg/dL (0.70-1.30); SODIUM 137 mmol/L (136-145); eGFR NON BLACK RACES > 60 (>60)
[2020-06-04] MEDS: FLAGYL IV PREMIX 500 MG BAG 500 MG/100 ML BAG IV SCH ×5 (06:46→23:25)
[2020-06-04] MEDS: D5 1/2 NS 1000 ML 1,000 ML IV SCH ×3 (07:14→18:52)
[2020-06-04] MEDS: ROCEPHIN 1 GRAM IV PREMIX 1 G/50 ML IV.SOLN. IV SCH (08:44)
[2020-06-04] MEDS ORDERED: POTASSIUM CHL 40 MEQ/NS 0.45% 500 ML IV PRN (09:35)
[2020-06-04] MEDS ORDERED: MICRO K EXTEN CAP 10 MEQ PO PRN (09:35)
[2020-06-04] MEDS ORDERED: KLOR-CON PO PRN (09:35)
[2020-06-04] MEDS ORDERED: K-DUR TAB 20 MEQ PO PRN (09:35)
[2020-06-04] MEDS ORDERED: K-RIDER 10 MEQ/NS 100 ML 10 MEQ/100 ML BAG IV PRN (09:35)
[2020-06-04] MEDS ORDERED: POTASSIUM CHL 60 MEQ/NS 0.45% 500 ML IV PRN (09:35)
[2020-06-04] MEDS ORDERED: POTASSIUM CHLORIDE LIQ 20 MEQ UDC PO PRN (09:35)
--- NOTE | 2020-06-04 10:07 | DR.H&P ---
H&P - History & Physical for Day of: H&P Date: 06/03/20 - Chief Complaint Chief Complaint: weakness, weight loss, n/v - History of Present Illness History of Present Illness: PT IS 85 WM ER ADMISSION WITH CO LOSS OF APPETITE, N/V, WEAKNESS. Patient is complaining of nausea with progressive weakness for the past 3-4 days. He denies chest pain but has been having SOB. He denies changes in his smell or taste. States he tested negative for the COVID virus on 05/16/20 and had his first COVID vaccination last . States he is a patient of Dr. Stein and has taken a Z-oneil with steriods and on an antibiotic for 14 days. He denies tobacco, alcohol or drug usage. states his appetite has decreased but he is still eating without problems. States he has not seen Dr. Stein recently but has been taking his medicines. PT HAS PMH OF HTN, OA AND CAD. - Past Medical History Past Medical History: Anxiety, Coronary Artery Disease, Depression, Dyslipidemia, GERD, Hypertension - Past Surgical History Surgical History: Angioplasty/Stents, CABG/Valve Surgery - Family History Family Medical History: CT, Coronary Artery Disease - Social History Does patient currently use any type of tobacco product: No Have you used tobacco products in the last 12 months: No Type of Tobacco Use: None Does any household member use tobacco: No Alcohol Use: None Drug Use: None - Medications Home Medications: ciprofloxacin [From Cipro] Allergy (Verified 04/25/19 16:28) Sulfa (Sulfonamide Antibiotics) [SULFA] Allergy (Verified 04/25/19 16:28) CONTINUE taking the following medications amitriptyline 10 mg PO HS 06/03/20 [History] atenolol 25 mg PO DAILY 06/03/20 [History] cefdinir 300 mg PO BID 06/03/20 [History] - Review of Systems Constitutional: Weakness Eyes: No Symptoms Reported ENT: No Symptoms Reported Respiratory: No Symptoms Reported Cardiovascular: No Symptoms Reported Gastrointestinal: Nausea, Vomiting, Abdominal Pain, Diarrhea, Constipation Genitourinary: No Symptoms Reported Musculoskeletal: Back Pain Skin: No Symptoms Reported Neurological: Weakness - Physical Exam Vital Signs: Temperature 99.3 F Pulse Rate [Radial] 80 Pulse Rate 86 Respiratory Rate 20 Blood Pressure [Left Arm] 114/55 Blood Pressure 109/53 O2 Sat by Pulse Oximetry 98 Oriented: Normal Eyes: Normal Ear: Normal Nose: Normal Throat: Normal Respiratory: RLL Diminished, LLL Diminished Cardiovascular: Normal : Normal Auscultation: Bowel Sounds: Normal Tenderness: Diffuse, Mild Skin: Decreased [place] Musculoskeletal: Back:Thoracic, Back:Lumbar Mood Description: Calm Speech Pattern: Clear, Appropriate - Assessment/Plan (1) Colitis Status: Acute Plan: ADMIT, IV HYDRATION, CT ABD PELVIS AND CTA OF CHEST ON ER ADMISSION. EKG, PAIN CONTROL, IV ROCEPHIN AND FLAGYL. CONSULT DR FORTUNE, VERIFY HOME MEDICATION. OCCULT STOOL, BP MONITORING. FLP, LDH, THYROID LEVELS AND PSA TO AM LABS (2) Lesion of colon Status: Acute (3) CAD (coronary artery disease) Status: Acute (4) Osteoarthritis Status: Acute (5) Weakness generalized Status: Acute - Allergies Allergies/Adverse Reactions: Allergies Allergy/AdvReac Type Severity Reaction Status Date / Time ciprofloxacin [From Cipro] Allergy Verified 04/25/19 16:28 Sulfa (Sulfonamide Allergy Verified 04/25/19 16:28 Antibiotics) [SULFA]
[2020-06-04] MEDS: MAGNESIUM SULFATE 1 GRAM/100 mL PREMIX 1 GM/100 ML BAG IV PRN ×2 (10:25→12:07)
[2020-06-04 10:30] LABS: FREE T4 (FREE THYROXINE) 1.28 ng/dL (0.76-1.46); TSH (3RD GENERATION) 0.403 uIU/mL (0.358-3.74)
[2020-06-04 10:33] LABS: TOTAL PSA 7.82 ng/mL (0.13-4.0)
[2020-06-05] MEDS: FLAGYL IV PREMIX 500 MG BAG 500 MG/100 ML BAG IV SCH ×3 (05:18→18:30)
[2020-06-05 06:21] LABS: BASOPHILS # (AUTO) 0.1 X10^3/uL (0.0-0.1); BASOPHILS % (AUTO) 0.6 % (0.2-1.0); EOSINOPHILS # (AUTO) 0.1 x10^3/uL (0.0-0.2); EOSINOPHILS % (AUTO) 1.3 % (0.9-2.9); HEMATOCRIT 37.7 % (42.0-54.0); HEMOGLOBIN 12.5 g/dL (13.5-18.0); LYMPHOCYTES # (AUTO) 1.3 X10^3/uL (1.3-2.9); LYMPHOCYTES % (AUTO) 12.5 % (21.0-51.0); MEAN CORPUSCULAR HEMOGLOBIN 30.2 pg (27.0-34.0); MEAN CORPUSCULAR HGB CONC 33.2 g/dL (33.0-35.0); MEAN CORPUSCULAR VOLUME 90.8 fL (80.0-100.0); MEAN PLATELET VOLUME 8.3 fL (7.4-11.0); MONOCYTES # (AUTO) 0.9 x10^3/uL (0.3-0.8); MONOCYTES % (AUTO) 8.6 % (0.0-13.0); PLATELET COUNT 228 X10^3/uL (150.0-450.0); RED BLOOD COUNT 4.15 X10^6/uL (4.7-6.0); RED CELL DISTRIBUTION WIDTH 14.9 % (11.6-16.5); WHITE BLOOD COUNT 10.3 X10^3/uL (3.6-10.0)
[2020-06-05 06:41] LABS: ALANINE AMINOTRANSFERASE 21 Units/L (12-78); ALBUMIN 2.3 g/dL (3.4-5.0); ALKALINE PHOSPHATASE 96 Units/L (46-116); ASPARTATE AMINO TRANSFERASE 31 Units/L (15-37); BLOOD UREA NITROGEN 10 mg/dL (7-18); CALCIUM 8.8 mg/dL (8.5-10.1); CARBON DIOXIDE 26.8 mmol/L (21-32); CHLORIDE 108 mmol/L (98-107); COR CA(FOR HYPOALB) 10.2 mg/dL (8.5-10.1); COR NA(FOR HYPERGLY) 144 mmol/L (136-145); CREATININE 0.99 mg/dL (0.70-1.30); SODIUM 143 mmol/L (136-145); TOTAL PROTEIN 6.5 g/dL (6.4-8.2); eGFR NON BLACK RACES > 60 (>60)
--- NOTE | 2020-06-05 07:30 | RAD ---
HISTORYSOBSTUDYCHEST, 1 [id number]/2021.TECHNIQUEAP view of the chestFINDINGSPost median sternotomy and CABG.The cardiac and mediastinal contours appear stable. Low lung volumes. Linear left base opacity likely atelectasis. Right base suboptimally evaluated. No definite pleural effusion or pneumothorax.IMPRESSIONNo significant change.Electronically signed by: Kelvin Ramachandran (Jun 05, 2020 07:28:46)
[2020-06-05] MEDS: ROCEPHIN 1 GRAM IV PREMIX 1 G/50 ML IV.SOLN. IV SCH (09:05)
[2020-06-05] MEDS ORDERED: NULYTELY or GO-LYTELY PO SCH (12:00)
[2020-06-05] MEDS: D5 1/2 NS 1000 ML 1,000 ML IV SCH ×2 (15:09→22:14)
[2020-06-06] MEDS: FLAGYL IV PREMIX 500 MG BAG 500 MG/100 ML BAG IV SCH ×3 (00:37→11:13)
[2020-06-06] MEDS: D5 1/2 NS 1000 ML 1,000 ML IV SCH ×2 (03:52→09:19)
--- NOTE | 2020-06-06 06:27 | RAD ---
HISTORYSOBSTUDYCHEST, 1 [id number]/18/2021FINDINGSThe trachea is midline. The cardiac silhouette is unremarkable. Changes of prior CABG surgery noted. Suboptimal inspiratory effort. There is mild elevation of the right hemidiaphragm. The lungs are clear without focal infiltrate or effusion. The bony thorax is unremarkable.IMPRESSIONSuboptimal inspiratory effort.No active cardiopulmonary diseaseElectronically signed by: Rod Duran (Jun 06, 2020 06:25:28)
[2020-06-06 06:35] LABS: ALANINE AMINOTRANSFERASE 18 Units/L (12-78); ALBUMIN 2.6 g/dL (3.4-5.0); ALKALINE PHOSPHATASE 94 Units/L (46-116); ASPARTATE AMINO TRANSFERASE 23 Units/L (15-37); BLOOD UREA NITROGEN 8 mg/dL (7-18); CALCIUM 9.2 mg/dL (8.5-10.1); CARBON DIOXIDE 25.2 mmol/L (21-32); CHLORIDE 105 mmol/L (98-107); COR CA(FOR HYPOALB) 10.3 mg/dL (8.5-10.1); COR NA(FOR HYPERGLY) 142 mmol/L (136-145); CREATININE 0.86 mg/dL (0.70-1.30); SODIUM 141 mmol/L (136-145); eGFR NON BLACK RACES > 60 (>60)
[2020-06-06 06:56] LABS: BASOPHILS % (AUTO) 0.4 % (0.2-1.0); EOSINOPHILS # (AUTO) 0.1 x10^3/uL (0.0-0.2); EOSINOPHILS % (AUTO) 1.5 % (0.9-2.9); HEMATOCRIT 40.1 % (42.0-54.0); HEMOGLOBIN 13.1 g/dL (13.5-18.0); LYMPHOCYTES # (AUTO) 1.3 X10^3/uL (1.3-2.9); LYMPHOCYTES % (AUTO) 15.4 % (21.0-51.0); MEAN CORPUSCULAR HEMOGLOBIN 29.9 pg (27.0-34.0); MEAN CORPUSCULAR HGB CONC 32.6 g/dL (33.0-35.0); MEAN CORPUSCULAR VOLUME 91.7 fL (80.0-100.0); MEAN PLATELET VOLUME 8.8 fL (7.4-11.0); MONOCYTES # (AUTO) 0.6 x10^3/uL (0.3-0.8); MONOCYTES % (AUTO) 7.3 % (0.0-13.0); NEUTROPHILS # (AUTO) 6.5 x10^3/uL (2.2-4.8); NEUTROPHILS % (AUTO) 75.4 % (42.0-75.0); PLATELET COUNT 291 X10^3/uL (150.0-450.0); RED BLOOD COUNT 4.38 X10^6/uL (4.7-6.0); RED CELL DISTRIBUTION WIDTH 14.9 % (11.6-16.5); WHITE BLOOD COUNT 8.7 X10^3/uL (3.6-10.0)
[2020-06-06] MEDS ORDERED: STERILE WATER IRRIGATION IR ONE (08:00)
[2020-06-06] MEDS ORDERED: NS 1000 ML 1,000 ML ONE (08:05)
[2020-06-06] MEDS ORDERED: DIPRIVAN VIAL 60 ML ONE (08:11)
[2020-06-06] MEDS ORDERED: DIPRIVAN VIAL 20 ML ONE (08:45)
[2020-06-06] MEDS: ROCEPHIN 1 GRAM IV PREMIX 1 G/50 ML IV.SOLN. IV SCH (09:20)
--- NOTE | 2020-06-06 09:25 | PCM.PROG ---
Progress Note - Progress Note for Day of Date of Exam: 06/05/20 - Subjective Subjective: WAS ADMITTED FOR TREATMENT OF COLITIS, LESION OF COLON, AND GENERALIZED WEAKNESS. HE HAS A HISTORY OF HTN, CAD, DYSLIPIDEMAI, GERD, AND DEPRESSION. HE HAS HAD A CABG AND HAS CARDIAC STENTS. TODAY, HE CONTINUES WITH COMPLAINTS OF NAUSEA, WEAKNESS, AND DECREASED APPETITE. ON EXAMINATION, HEART IS REGULAR IN RATE AND RHYTHM. BILATERAL LUNGS ARE NOTED WITH DIMINISHED LUNG SOUNDS THROUGHOUT. ABDOMEN IS ROUND, SOFT, AND NOTED WITH MILD, DIFFUSE TENDERNESS. NORMAL BOWEL SOUNDS ARE NOTED IN ALL QUADRANTS. HIS VITALS THIS MORNING ARE: 98.1-88-20-98%NC-141/69. LABS WERE OBTAINED. ABNORMAL LAB VALUES INCLUDE THE FOLLOWING: WBC 10.3, RBC 4.15, HGB 12.5, HCT 37.7, CHLORIDE 108, GLUCOSE 126, ALBUMIN 2.3, TOTAL PSA 7.82. A CHEST XRAY WAS OBTAINED AND REVEALED: Post median sternotomy and CABG.The cardiac and mediastinal contours appear stable. Low lung volumes. Linear left base opacity likely atelectasis. Right base suboptimally evaluated. No definite pleural effusion or pneumothorax. ABDOMEN/PELVIS CT THAT WAS OBTAINED ON ADMISSION REVEALED: Irregular circumferential thickening of the ascending colon over a length of at least 5 cm with adjacent pericolonic stranding resulting in narrowing of the inner lumen diameter. This is highly concerning for potential colonic neoplasm. Multiple small cystic lesions of the bilateral kidneys, right more so than left. A few indeterminate hyperdense lesions which may represent small hemorrhagic, proteinaceous, and/or partially calcified cyst. Diffuse atheromatous disease of the [place] coronary arteries, aorta, and major mesenteric/iliac tributaries. Moderate elevation of the right diaphragm with associated with compressive atelectasis of the posterior right lung base. WE HAVE CONSULTED WITH , GENERAL SURGEON FOR COLONOSCOPY. HE PLANS FOR COLONOSCOPY TOMORROW MORNING. WE ARE IN AGREEMENT WITH PLANS. HE IS CURRENTLY RECEIVING D51/2NS AT 100 ML/HR, ROCEPHIN 1G IV DAILY, FLAGYL 500MG IV Q6H, PEPCID 20MG IV BID, MORPHINE 2MG IV Q4H PRN PAIN, ZOFRAN 4MG IV Q6H PRN NAUSEA, PERCOCET 5/325MG PO Q4H PRN PAIN, AND THE POTASSIUM AND MAGNESIUM PROTOCOLS. WE WILL CONTINUE WITH CURRENT PLAN OF CARE TODAY. OTHERWISE, WE WILL FOLLOW UP WITH AM LABS AND CONTINUE TO MONITOR. - Past Medical Family Social History Past Med/Fam/Surg Hx: No changes since H&P Allergies: Allergies ciprofloxacin [From Cipro] Allergy (Verified 04/25/19 16:28) Sulfa (Sulfonamide Antibiotics) [SULFA] Allergy (Verified 04/25/19 16:28) - Review of Systems ROS: No change since H&P - Vital Signs and I&O's Vital Signs: Temperature 97.9 F Pulse Rate [Radial] 115 Pulse Rate 86 Respiratory Rate 18 Blood Pressure [Right Arm] 153/76 Blood Pressure [Left Arm] 145/77 Blood Pressure 109/53 O2 Sat by Pulse Oximetry 96 Intake and Output: Intake & Output 06/03/20 06/04/20 06/05/20 06/06/20 11:59 11:59 11:59 11:59 Intake Total 1175 / 1175 2734 / 2734 8071 / 8071 Balance 1175 / 1175 2734 / 2734 8071 / 8071 - Physical Exam Oriented: Normal Eyes: Normal Ear: Normal Nose: Normal Throat: Normal Respiratory: Generalized, Diminished Cardiovascular: Normal : Normal Auscultation: Bowel Sounds: Normal Palpation: Normal Tenderness: Diffuse, Mild Skin: Decreased Turgur Musculoskeletal: Back:Thoracic, Back:Lumbar Mood Description: Calm Speech Pattern: Clear, Appropriate - Laboratory and Diagnostics Result Diagrams: 06/06/20 05:23 06/06/20 05:23 Labs: Laboratory WBC 8.7 X10^3/uL (3.6-10.0) 06/06/20 05:23 RBC 4.38 X10^6/uL (4.7-6.0) L 06/06/20 05:23 Hgb 13.1 g/dL (13.5-18.0) L 06/06/20 05:23 Hct 40.1 % (42.0-54.0) L 06/06/20 05:23 MCV 91.7 fL (80.0-100.0) 06/06/20 05:23 MCH 29.9 pg (27.0-34.0) 06/06/20 05:23 MCHC 32.6 g/dL (33.0-35.0) L 06/06/20 05:23 RDW 14.9 % (11.6-16.5) 06/06/20 05:23 Plt Count 291 X10^3/uL (150.0-450.0) 06/06/20 05:23 MPV 8.8 fL (7.4-11.0) 06/06/20 05:23 Neut % (Auto) 75.4 % (42.0-75.0) H 06/06/20 05:23 Lymph % (Auto) 15.4 % (21.0-51.0) L 06/06/20 05:23 [place] % (Auto) 7.3 % (0.0-13.0) 06/06/20 05:23 Eos % (Auto) 1.5 % (0.9-2.9) 06/06/20 05:23 Baso % (Auto) 0.4 % (0.2-1.0) 06/06/20 05:23 Neut # (Auto) 6.5 x10^3/uL (2.2-4.8) H 06/06/20 05:23 Lymph # (Auto) 1.3 X10^3/uL (1.3-2.9) 06/06/20 05:23 [place] # (Auto) 0.6 x10^3/uL (0.3-0.8) 06/06/20 05:23 Eos # (Auto) 0.1 x10^3/uL (0.0-0.2) 06/06/20 05:23 Baso # (Auto) 0.0 X10^3/uL (0.0-0.1) 06/06/20 05:23 Absolute Nucleated RBC 0.1 /100WBC 06/06/20 05:23 PT 14.7 SECONDS (11.8-14.3) 06/03/20 16:35 INR Target Range - 06/03/20 16:35 INR 1.18 (0.8-1.3) 06/03/20 16:35 APTT 35.3 SECONDS (22.9-36.5) 06/03/20 16:35 PTT Comment - 06/03/20 16:35 D-Dimer 1.59 ug/ml (0.0-0.57) H* 06/03/20 16:35 Sodium 141 mmol/L (136-145) 06/06/20 05:23 Corrected Sodium 142 mmol/L (136-145) 06/06/20 05:23 Potassium 3.4 mmol/L (3.5-5.1) L 06/06/20 05:23 Chloride 105 mmol/L (98-107) 06/06/20 05:23 Carbon Dioxide 25.2 mmol/L (21-32) 06/06/20 05:23 BUN 8 mg/dL (7-18) 06/06/20 05:23 Creatinine 0.86 mg/dL (0.70-1.30) 06/06/20 05:23 Est GFR (MDRD) Af Amer > 60 (>60) 06/06/20 05:23 Est GFR (MDRD) Non-Af > 60 (>60) 06/06/20 05:23 Glucose 131 mg/dL (65-99) H 06/06/20 05:23 Lactic Acid 0.9 mmol/L (0.4-2.0) 06/03/20 21:10 Calcium 9.2 mg/dL (8.5-10.1) 06/06/20 05:23 Corrected Calcium 10.3 mg/dL (8.5-10.1) H 06/06/20 05:23 Magnesium Cancelled 06/04/20 05:25 Ferritin 170 ng/mL (26-388) 06/03/20 16:35 Total Bilirubin 0.50 mg/dL (0.2-1.0) 06/06/20 05:23 AST 23 Units/L (15-37) 06/06/20 05:23 ALT 18 Units/L (12-78) 06/06/20 05:23 Alkaline Phosphatase 94 Units/L (46-116) 06/06/20 05:23 Lactate Dehydrogenase 195 Units/L (85-227) 06/04/20 05:25 Creatine Kinase 40 Units/L (39-308) 06/03/20 16:35 CK-MB (CK-2) < 1.0 ng/mL (0-4.0) 06/03/20 16:35 CK/CKMB % Calc 2.5 % (<4) 06/03/20 16:35 Troponin I < 0.02 ng/mL (0-1.5) 06/03/20 16:35 C-Reactive Protein 54.60 mg/L (0-3.0) H 06/03/20 16:35 Total Protein 7.0 g/dL (6.4-8.2) 06/06/20 05:23 Albumin 2.6 g/dL (3.4-5.0) L 06/06/20 05:23 Globulin 4.4 g/dL (2.5-4.5) 06/06/20 05:23 Albumin/Globulin Ratio 0.6 Ratio (1.1-2.1) L 06/06/20 05:23 Triglycerides 28 mg/dL (0-150) 06/04/20 05:25 Cholesterol 90 mg/dL (0-200) 06/04/20 05:25 LDL Cholesterol, Calc 38 mg/dL (0-100) 06/04/20 05:25 HDL Cholesterol 46 mg/dL (40-60) 06/04/20 05:25 Cholesterol/HDL Ratio 2.0 (0.0-5.0) 06/04/20 05:25 Amylase 30 Units/L (25-115) 06/03/20 16:35 Lipase 72 Units/L (73-393) L 06/03/20 16:35 Total PSA 7.82 ng/mL (0.13-4.0) H 06/04/20 05:25 Free T4 1.28 ng/dL (0.76-1.46) 06/04/20 05:25 TSH 3rd Generation 0.403 uIU/mL (0.358-3.74) 06/04/20 05:25 SARS CoV-2 RNA Rapid ZAID Negative (NEGATIVE) 06/03/20 17:28 - Plan (1) Colitis Status: Acute Plan: D51/2NS AT 100 ML/HR, ROCEPHIN 1G IV DAILY, FLAGYL 500MG IV Q6H, PEPCID 20MG IV BID, MORPHINE 2MG IV Q4H PRN PAIN, ZOFRAN 4MG IV Q6H PRN NAUSEA, PERCOCET 5/325MG PO Q4H PRN PAIN, AND THE POTASSIUM AND MAGNESIUM PROTOCOLS. COLONOSCOPY IN AM (2) Lesion of colon Status: Acute (3) Atelectasis of right lung Status: Acute (4) Weakness generalized Status: Acute (5) Cholelithiasis Status: Acute Qualifiers: Cholecystitis acuity: unspecified acuity
[2020-06-06 10:15] VITALS: BP 176/80
== END 2020-06-06 11:40 | disposition home or self-care (01) | DRG 392 ==
LOC: ER 15:55 → MED/SURG 20:51
PROVIDERS: ADMIT Internal Medicine; ATTEND Internal Medicine
DX: K57.30 Diverticulosis of large intestine without perforation or abscess without bleeding; R53.1 Weakness; E78.2 Mixed hyperlipidemia; J98.11 Atelectasis; K52.89 Other specified noninfective gastroenteritis and colitis; R79.89 Other specified abnormal findings of blood chemistry; I95.0 Idiopathic hypotension; K21.9 Gastro-esophageal reflux disease without esophagitis; Z20.828 Contact with and (suspected) exposure to other viral communicable diseases; R79.1 Abnormal coagulation profile; R79.82 Elevated C-reactive protein (CRP); K63.9 Disease of intestine, unspecified; R06.02 Shortness of breath; I10 Essential (primary) hypertension; K80.20 Calculus of gallbladder without cholecystitis without obstruction; I25.10 Atherosclerotic heart disease of native coronary artery without angina pectoris; M19.90 Unspecified osteoarthritis, unspecified site

== ENCOUNTER 2023-12-15 12:30 | Inpatient (IN) ==
[2023-12-15] MEDS ORDERED: PERCOCET TAB 5/325 MG PO PRN (13:13)
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
[2023-12-15] MEDS: RESTORIL CAP 15 MG PO SCH (21:16)
[2023-12-15] MEDS: CRESTOR TAB 10 MG PO SCH (21:16)
[2023-12-15] MEDS: COLACE CAP 100 MG PO SCH (21:17)
[2023-12-15] MEDS: ELAVIL PO SCH (21:17)
[2023-12-15] MEDS: K-DUR TAB 20 MEQ PO SCH (21:17)
[2023-12-16] MEDS: ROCEPHIN VIAL 1 GRAM 1 G in NS 100 ML IV 100 ML IV SCH (08:30)
[2023-12-16] MEDS: LOVENOX INJ 40 MG SYR SC SCH (08:30)
[2023-12-16] MEDS: CELEXA PO SCH (08:30)
[2023-12-16] MEDS: PriLOSEC PO SCH (08:31)
[2023-12-16] MEDS: TENORMIN PO SCH (08:31)
[2023-12-16] MEDS: COZAAR PO SCH (09:44)
[2023-12-16] MEDS: MILK OF MAGNESIA PO SCH (09:45)
[2023-12-16] MEDS: NS 100 ML IV 100 ML ONE (09:46)
[2023-12-17 06:22] LABS: BASOPHILS % (AUTO) 0.4 % (0.2-1.0); EOSINOPHILS # (AUTO) 0.1 x10^3/uL (0.0-0.2); EOSINOPHILS % (AUTO) 0.7 % (0.9-2.9); HEMATOCRIT 34.4 % (42.0-54.0); HEMOGLOBIN 11.6 g/dL (13.5-18.0); LYMPHOCYTES # (AUTO) 1.6 X10^3/uL (1.3-2.9); MEAN CORPUSCULAR HEMOGLOBIN 30.6 pg (27.0-34.0); MEAN CORPUSCULAR HGB CONC 33.7 g/dL (33.0-35.0); MEAN CORPUSCULAR VOLUME 90.9 fL (80.0-100.0); MEAN PLATELET VOLUME 8.4 fL (7.4-11.0); MONOCYTES % (AUTO) 10.9 % (0.0-13.0); NEUTROPHILS # (AUTO) 6.2 x10^3/uL (2.2-4.8); PLATELET COUNT 339 X10^3/uL (150.0-450.0); RED BLOOD COUNT 3.78 X10^6/uL (4.7-6.0); RED CELL DISTRIBUTION WIDTH 15.3 % (11.6-16.5); WHITE BLOOD COUNT 8.9 X10^3/uL (3.6-10.0)
[2023-12-17 07:02] LABS: ALANINE AMINOTRANSFERASE 24 Units/L (12-78); ALBUMIN 1.9 g/dL (3.4-5.0); ALKALINE PHOSPHATASE 205 Units/L (46-116); BLOOD UREA NITROGEN 9 mg/dL (7-18); CALCIUM 8.5 mg/dL (8.5-10.1); CARBON DIOXIDE 26.6 mmol/L (21-32); CHLORIDE 103 mmol/L (98-107); COR CA(FOR HYPOALB) 10.2 mg/dL (8.5-10.1); CREATININE 0.74 mg/dL (0.70-1.30); GLUCOSE 97 mg/dL (65-99); POTASSIUM 3.8 mmol/L (3.5-5.1); SODIUM 137 mmol/L (136-145); TOTAL PROTEIN 5.6 g/dL (6.4-8.2); eGFR NON BLACK RACES > 60 (>60)
[2023-12-17 07:10] LABS: ASPARTATE AMINO TRANSFERASE 29 Units/L (15-37)
[2023-12-17] MEDS ORDERED: CONSULT PHARMACY - POTASSIUM & MAGNESIUM XX SCH (09:00)
[2023-12-17] MEDS ORDERED: COZAAR PO NR (12:00)
[2023-12-18] MEDS: COZAAR PO SCH (09:32)
[2023-12-18 10:30] VITALS: BMI 29.0
[2023-12-19 06:31] LABS: MEAN CORPUSCULAR HGB CONC 33.8 g/dL (33.0-35.0)
[2023-12-19 06:38] LABS: BASOPHILS # (AUTO) 0.1 X10^3/uL (0.0-0.1); BASOPHILS % (AUTO) 0.9 % (0.2-1.0); EOSINOPHILS # (AUTO) 0.1 x10^3/uL (0.0-0.2); EOSINOPHILS % (AUTO) 2.3 % (0.9-2.9); HEMATOCRIT 32.1 % (42.0-54.0); HEMOGLOBIN 10.9 g/dL (13.5-18.0); LYMPHOCYTES # (AUTO) 1.6 X10^3/uL (1.3-2.9); LYMPHOCYTES % (AUTO) 24.5 % (21.0-51.0); MEAN CORPUSCULAR HEMOGLOBIN 30.8 pg (27.0-34.0); MEAN PLATELET VOLUME 8.2 fL (7.4-11.0); MONOCYTES # (AUTO) 0.7 x10^3/uL (0.3-0.8); MONOCYTES % (AUTO) 10.9 % (0.0-13.0); NEUTROPHILS # (AUTO) 3.9 x10^3/uL (2.2-4.8); NEUTROPHILS % (AUTO) 61.4 % (42.0-75.0); PLATELET COUNT 327 X10^3/uL (150.0-450.0); RED BLOOD COUNT 3.53 X10^6/uL (4.7-6.0); RED CELL DISTRIBUTION WIDTH 15.1 % (11.6-16.5); WHITE BLOOD COUNT 6.4 X10^3/uL (3.6-10.0)
[2023-12-19 06:49] LABS: ALANINE AMINOTRANSFERASE 34 Units/L (12-78); ALBUMIN 1.8 g/dL (3.4-5.0); ALKALINE PHOSPHATASE 191 Units/L (46-116); ASPARTATE AMINO TRANSFERASE 47 Units/L (15-37); BLOOD UREA NITROGEN 10 mg/dL (7-18); CALCIUM 8.6 mg/dL (8.5-10.1); CARBON DIOXIDE 29.3 mmol/L (21-32); CHLORIDE 106 mmol/L (98-107); COR CA(FOR HYPOALB) 10.4 mg/dL (8.5-10.1); CREATININE 0.68 mg/dL (0.70-1.30); GLUCOSE 105 mg/dL (65-99); POTASSIUM 3.6 mmol/L (3.5-5.1); SODIUM 141 mmol/L (136-145); TOTAL PROTEIN 5.5 g/dL (6.4-8.2); eGFR NON BLACK RACES > 60 (>60)
[2023-12-19] MEDS: NS 250 ML IV 250 ML IV ONE (08:00)
[2023-12-19] MEDS: POTASSIUM CHLORIDE LIQ PO SCH (09:29)
[2023-12-19] MEDS: ULTRAM PO PRN (21:53)
[2023-12-21] MEDS: BUTT CREAM (COMPOUND) TOP PRN (08:41)
[2023-12-22 06:22] LABS: BASOPHILS # (AUTO) 0.1 X10^3/uL (0.0-0.1); BASOPHILS % (AUTO) 0.9 % (0.2-1.0); EOSINOPHILS # (AUTO) 0.2 x10^3/uL (0.0-0.2); EOSINOPHILS % (AUTO) 2.6 % (0.9-2.9); HEMATOCRIT 31.8 % (42.0-54.0); HEMOGLOBIN 10.9 g/dL (13.5-18.0); LYMPHOCYTES # (AUTO) 1.5 X10^3/uL (1.3-2.9); LYMPHOCYTES % (AUTO) 24.9 % (21.0-51.0); MEAN CORPUSCULAR HEMOGLOBIN 30.7 pg (27.0-34.0); MEAN CORPUSCULAR HGB CONC 34.1 g/dL (33.0-35.0); MEAN CORPUSCULAR VOLUME 89.8 fL (80.0-100.0); MEAN PLATELET VOLUME 8.1 fL (7.4-11.0); MONOCYTES # (AUTO) 0.5 x10^3/uL (0.3-0.8); MONOCYTES % (AUTO) 8.1 % (0.0-13.0); NEUTROPHILS # (AUTO) 3.9 x10^3/uL (2.2-4.8); NEUTROPHILS % (AUTO) 63.5 % (42.0-75.0); PLATELET COUNT 371 X10^3/uL (150.0-450.0); RED BLOOD COUNT 3.54 X10^6/uL (4.7-6.0); RED CELL DISTRIBUTION WIDTH 14.8 % (11.6-16.5); WHITE BLOOD COUNT 6.2 X10^3/uL (3.6-10.0)
[2023-12-22 06:39] LABS: ALANINE AMINOTRANSFERASE 38 Units/L (12-78); ALBUMIN 1.8 g/dL (3.4-5.0); ALKALINE PHOSPHATASE 198 Units/L (46-116); ASPARTATE AMINO TRANSFERASE 32 Units/L (15-37); BLOOD UREA NITROGEN 7 mg/dL (7-18); CALCIUM 8.6 mg/dL (8.5-10.1); CARBON DIOXIDE 27.9 mmol/L (21-32); CHLORIDE 106 mmol/L (98-107); COR CA(FOR HYPOALB) 10.4 mg/dL (8.5-10.1); COR NA(FOR HYPERGLY) 142 mmol/L (136-145); CREATININE 0.77 mg/dL (0.70-1.30); GLUCOSE 121 mg/dL (65-99); MAGNESIUM 2.1 mg/dL (2.0-2.9); POTASSIUM 3.4 mmol/L (3.5-5.1); SODIUM 141 mmol/L (136-145); TOTAL PROTEIN 5.5 g/dL (6.4-8.2); eGFR NON BLACK RACES > 60 (>60)
[2023-12-22] MEDS ORDERED: CONSULT PHARMACY - POTASSIUM & MAGNESIUM XX SCH (09:00)
[2023-12-22] MEDS: POTASSIUM CHLORIDE LIQ PO SCH (14:23)
--- NOTE | 2023-12-22 22:24 | DR.H&P ---
H&P History & Physical for Day of: H&P Date: 12/15/23 Chief Complaint Chief Complaint: History of recent pelvic fracture/generalized weakness/ambulation difficulty History of Present Illness History of Present Illness: This is a pleasant 88-year-old white male whom I have had admitted to [facility] for the last several days for pain control after he sustained a pelvic fracture within the last few weeks. He had previously been admitted to [facility] and was discharged home where he was post to get home physical therapy. Since the patient could not manage at home because of the pain and the severity of his weakness we elected to direct admit into [facility]. After he has been here for several days he is well enough to chart changer to a swing bed admission and continue inpatient physical therapy at this time. Currently his pain is much better and he is barely taking any pain medicines now given his age and current frail condition we will continue to do physical therapy to watch him closely during his swing bed hospitalization. Past Medical History Past Medical History: Anxiety, Coronary Artery Disease, Depression, Dysli pidemia, GERD and Hypertension Past Surgical History Surgical History: Other Family History Family Medical History: [place] and Hypertension Allergies Allergies Allergy/AdvReac Type Severity Reaction Status Date / Time ciprofloxacin [From Cipro] Allergy Verified 10/02/23 10:44 promethazine [From Phenergan] Allergy Verified 12/04/23 23:47 Sulfa (Sulfonamide Allergy Verified 10/02/23 10:44 Antibiotics) [SULFA] Labs 12/22/23 05:20 12/22/23 05:20 Labs: Laboratory WBC 6.2 X10^3/uL (3.6-10.0) 12/22/23 05:20 RBC 3.54 X10^6/uL (4.7-6.0) L 12/22/23 05:20 Hgb 10.9 g/dL (13.5-18.0) L 12/22/23 05:20 Hct 31.8 % (42.0-54.0) L 12/22/23 05:20 MCV 89.8 fL (80.0-100.0) 12/22/23 05:20 MCH 30.7 pg (27.0-34.0) 12/22/23 05:20 MCHC 34.1 g/dL (33.0-35.0) 12/22/23 05:20 RDW 14.8 % (11.6-16.5) 12/22/23 05:20 Plt Count 371 X10^3/uL (150.0-450.0) 12/22/23 05:20 MPV 8.1 fL (7.4-11.0) 12/22/23 05:20 Neut % (Auto) 63.5 % (42.0-75.0) 12/22/23 05:20 Lymph % (Auto) 24.9 % (21.0-51.0) 12/22/23 05:20 [place] % (Auto) 8.1 % (0.0-13.0) 12/22/23 05:20 Eos % (Auto) 2.6 % (0.9-2.9) 12/22/23 05:20 Baso % (Auto) 0.9 % (0.2-1.0) 12/22/23 05:20 Neut # (Auto) 3.9 x10^3/uL (2.2-4.8) 12/22/23 05:20 Lymph # (Auto) 1.5 X10^3/uL (1.3-2.9) 12/22/23 05:20 [place] # (Auto) 0.5 x10^3/uL (0.3-0.8) 12/22/23 05:20 Eos # (Auto) 0.2 x10^3/uL (0.0-0.2) 12/22/23 05:20 Baso # (Auto) 0.1 X10^3/uL (0.0-0.1) 12/22/23 05:20 Absolute Nucleated RBC 0.1 /100WBC 12/22/23 05:20 Sodium 141 mmol/L (136-145) 12/22/23 05:20 Corrected Sodium 142 mmol/L (136-145) 12/22/23 05:20 Potassium 3.4 mmol/L (3.5-5.1) L 12/22/23 05:20 Chloride 106 mmol/L (98-107) 12/22/23 05:20 Carbon Dioxide 27.9 mmol/L (21-32) 12/22/23 05:20 BUN 7 mg/dL (7-18) 12/22/23 05:20 Creatinine 0.77 mg/dL (0.70-1.30) 12/22/23 05:20 Est GFR (MDRD) Af Amer > 60 (>60) 12/22/23 05:20 Est GFR (MDRD) Non-Af > 60 (>60) 12/22/23 05:20 Glucose 121 mg/dL (65-99) H 12/22/23 05:20 Calcium 8.6 mg/dL (8.5-10.1) 12/22/23 05:20 Corrected Calcium 10.4 mg/dL (8.5-10.1) H 12/22/23 05:20 Magnesium 2.1 mg/dL (2.0-2.9) 12/22/23 05:20 Total Bilirubin 0.20 mg/dL (0.2-1.0) 12/22/23 05:20 AST 32 Units/L (15-37) 12/22/23 05:20 ALT 38 Units/L (12-78) 12/22/23 05:20 Alkaline Phosphatase 198 Units/L (46-116) H 12/22/23 05:20 Total Protein 5.5 g/dL (6.4-8.2) L 12/22/23 05:20 Albumin 1.8 g/dL (3.4-5.0) L 12/22/23 05:20 Globulin 3.7 g/dL (2.5-4.5) 12/22/23 05:20 Albumin/Globulin Ratio 0.5 Ratio (1.1-2.1) L 12/22/23 05:20 Review of Systems Constitutional: No Symptoms Reported Eyes: No Symptoms Reported ENT: No Symptoms Reported Respiratory: No Symptoms Reported Cardiovascular: No Symptoms Reported Gastrointestinal: No Symptoms Reported Genitourinary: No Symptoms Reported Musculoskeletal: Back Pain, Hand Pain (Left wrist) and Other (Pelvic pain) Physical Exam Vital Signs: Temperature 98.8 F pulse 98 blood pressure 149/73 respirations 18 SpO2 98% on 2 L nasal cannula Oriented: Normal Eyes: Normal Ear: Normal Nose: Normal Throat: Normal Respiratory: Clear Throughout Cardiovascular: Normal Auscultation: Bowel Sounds: Normal Palpation: Normal Tenderness: Normal Skin: Normal Musculoskeletal: Left, Wrist, Back:Lumbar, Back:Paraspinous, Pelvis, Tender, Motor Deficit and Instability Psychiatric: Normal Mood Description: Calm Affect: Normal Speech Pattern: Clear Assessment/Plan (1) Fracture, pelvis closed: Status: Acute Plan: Pain control while the fracture heals. (2) Primary hypertension: Status: Acute Plan: Continue antihypertensives and maintain patient's blood pressure at 135/85 or less. (3) Generalized weakness: Status: Chronic Plan: Continue physical therapy to help strengthen patient's muscles. (4) CAD (coronary artery disease): Status: Chronic Plan: Strict blood pressure control, and statin therapy. (5) Osteoarthritis: Status: Chronic Plan: Pain control. (6) CKD (chronic kidney disease) stage 3, GFR 30-59 ml/min: Status: Chronic Plan: Renally dose all medications. Monitor renal function with patient 1-2 times per week. Review H&P Reviewed: Yes Patient was examined?: Yes
--- NOTE | 2023-12-22 22:28 | PCM.PROG ---
Progress Note Progress Note for Day of Date of Exam: 12/18/23 Subjective Subjective: The patient reports he is doing well. He reports that his therapy is started off slow but feels like he is slowly getting stronger daily. His family reports he is doing better and he is having less confusion since we stopped the temazepam the previous night. Today we are going to stop the amitriptyline and hopes to minimize further sleepiness in hopes that he will work more with the therapist to regain his strength. Past Medical Family Social History Allergies: Allergies ciprofloxacin [From Cipro] Allergy (Verified 10/02/23 10:44) promethazine [From Phenergan] Allergy (Verified 12/04/23 23:47) Sulfa (Sulfonamide Antibiotics) [SULFA] Allergy (Verified 10/02/23 10:44) Review of Systems ROS: No change since H&P Vital Signs and I&O's Intake and Output: Intake & Output 12/20/23 12/21/23 12/22/23 12/23/23 11:59 11:59 11:59 11:59 Intake Total 615 / 615 850 / 850 700 / 700 348 / 348 Output Total 400 / 400 Balance 215 / 215 850 / 850 700 / 700 348 / 348 Physical Exam Oriented: Normal Eyes: Normal Ear: Normal Nose: Normal Throat: Normal Respiratory: Normal Cardiovascular: Normal Auscultation: Bowel Sounds: Normal Tenderness: Normal Skin: Normal Musculoskeletal: Left, Wrist, Back:Lumbar, Back:Paraspinous, Pelvis, Tender, Motor Deficit and Instability Psychiatric: Normal Mood Description: Calm Affect: Normal Speech Pattern: Clear Laboratory and Diagnostics 12/22/23 05:20 12/22/23 05:20 Labs: Laboratory WBC 6.2 X10^3/uL (3.6-10.0) 12/22/23 05:20 RBC 3.54 X10^6/uL (4.7-6.0) L 12/22/23 05:20 Hgb 10.9 g/dL (13.5-18.0) L 12/22/23 05:20 Hct 31.8 % (42.0-54.0) L 12/22/23 05:20 MCV 89.8 fL (80.0-100.0) 12/22/23 05:20 MCH 30.7 pg (27.0-34.0) 12/22/23 05:20 MCHC 34.1 g/dL (33.0-35.0) 12/22/23 05:20 RDW 14.8 % (11.6-16.5) 12/22/23 05:20 Plt Count 371 X10^3/uL (150.0-450.0) 12/22/23 05:20 MPV 8.1 fL (7.4-11.0) 12/22/23 05:20 Neut % (Auto) 63.5 % (42.0-75.0) 12/22/23 05:20 Lymph % (Auto) 24.9 % (21.0-51.0) 12/22/23 05:20 [place] % (Auto) 8.1 % (0.0-13.0) 12/22/23 05:20 Eos % (Auto) 2.6 % (0.9-2.9) 12/22/23 05:20 Baso % (Auto) 0.9 % (0.2-1.0) 12/22/23 05:20 Neut # (Auto) 3.9 x10^3/uL (2.2-4.8) 12/22/23 05:20 Lymph # (Auto) 1.5 X10^3/uL (1.3-2.9) 12/22/23 05:20 [place] # (Auto) 0.5 x10^3/uL (0.3-0.8) 12/22/23 05:20 Eos # (Auto) 0.2 x10^3/uL (0.0-0.2) 12/22/23 05:20 Baso # (Auto) 0.1 X10^3/uL (0.0-0.1) 12/22/23 05:20 Absolute Nucleated RBC 0.1 /100WBC 12/22/23 05:20 Sodium 141 mmol/L (136-145) 12/22/23 05:20 Corrected Sodium 142 mmol/L (136-145) 12/22/23 05:20 Potassium 3.4 mmol/L (3.5-5.1) L 12/22/23 05:20 Chloride 106 mmol/L (98-107) 12/22/23 05:20 Carbon Dioxide 27.9 mmol/L (21-32) 12/22/23 05:20 BUN 7 mg/dL (7-18) 12/22/23 05:20 Creatinine 0.77 mg/dL (0.70-1.30) 12/22/23 05:20 Est GFR (MDRD) Af Amer > 60 (>60) 12/22/23 05:20 Est GFR (MDRD) Non-Af > 60 (>60) 12/22/23 05:20 Glucose 121 mg/dL (65-99) H 12/22/23 05:20 Calcium 8.6 mg/dL (8.5-10.1) 12/22/23 05:20 Corrected Calcium 10.4 mg/dL (8.5-10.1) H 12/22/23 05:20 Magnesium 2.1 mg/dL (2.0-2.9) 12/22/23 05:20 Total Bilirubin 0.20 mg/dL (0.2-1.0) 12/22/23 05:20 AST 32 Units/L (15-37) 12/22/23 05:20 ALT 38 Units/L (12-78) 12/22/23 05:20 Alkaline Phosphatase 198 Units/L (46-116) H 12/22/23 05:20 Total Protein 5.5 g/dL (6.4-8.2) L 12/22/23 05:20 Albumin 1.8 g/dL (3.4-5.0) L 12/22/23 05:20 Globulin 3.7 g/dL (2.5-4.5) 12/22/23 05:20 Albumin/Globulin Ratio 0.5 Ratio (1.1-2.1) L 12/22/23 05:20 Radiology Reviewed: Yes Plan (1) Fracture, pelvis closed: Status: Acute Plan: Pain control while the fracture heals. (2) Primary hypertension: Status: Acute Plan: Continue antihypertensives and maintain patient's blood pressure at 135/85 or less. (3) Generalized weakness: Status: Chronic Plan: Continue physical therapy to help strengthen patient's muscles. (4) CAD (coronary artery disease): Status: Chronic Plan: Strict blood pressure control, and statin therapy. (5) Osteoarthritis: Status: Chronic Plan: Pain control. (6) CKD (chronic kidney disease) stage 3, GFR 30-59 ml/min: Status: Chronic Plan: Renally dose all medications. Monitor renal function with patient 1-2 times per week. (7) Excessive sleepiness: Status: Acute Narrative Support Text: Improved after discontinuing temazepam on the previous night. We will be discontinuing the patient's amitriptyline today and attempt to lessen his sleepiness even more so he will hopefully work more with the physical therapist.
--- NOTE | 2023-12-22 22:30 | PCM.PROG ---
Progress Note Progress Note for Day of Date of Exam: 12/22/23 Subjective Subjective: The patient reports that he is doing much better. His family states that he is getting stronger and they are noticing an improvement in them. The patient's reports that he is starting to get back to his old self. He is still having some weakness but the physical therapy is helping him to slowly regain his strength. We will continue his current treatment at this time.'s labs look good today. His hemoglobin is stable at 10.9. His last hemoglobin several days ago was also 10.9. His potassium is slightly low today at 3.4 but we will correct that with the potassium replacement protocol. Past Medical Family Social History Allergies: Allergies ciprofloxacin [From Cipro] Allergy (Verified 10/02/23 10:44) promethazine [From Phenergan] Allergy (Verified 12/04/23 23:47) Sulfa (Sulfonamide Antibiotics) [SULFA] Allergy (Verified 10/02/23 10:44) Review of Systems ROS: No change since H&P Vital Signs and I&O's Intake and Output: Intake & Output 12/20/23 12/21/23 12/22/23 12/23/23 11:59 11:59 11:59 11:59 Intake Total 615 / 615 850 / 850 700 / 700 348 / 348 Output Total 400 / 400 Balance 215 / 215 850 / 850 700 / 700 348 / 348 Physical Exam Oriented: Normal Eyes: Normal Ear: Normal Nose: Normal Throat: Normal Respiratory: Normal Cardiovascular: Normal Auscultation: Bowel Sounds: Normal Tenderness: Normal Skin: Normal Musculoskeletal: Left, Wrist, Back:Lumbar, Back:Paraspinous, Pelvis, Tender, Motor Deficit and Instability Psychiatric: Normal Mood Description: Calm Affect: Normal Speech Pattern: Clear Laboratory and Diagnostics 12/22/23 05:20 12/22/23 05:20 Labs: Laboratory WBC 6.2 X10^3/uL (3.6-10.0) 12/22/23 05:20 RBC 3.54 X10^6/uL (4.7-6.0) L 12/22/23 05:20 Hgb 10.9 g/dL (13.5-18.0) L 12/22/23 05:20 Hct 31.8 % (42.0-54.0) L 12/22/23 05:20 MCV 89.8 fL (80.0-100.0) 12/22/23 05:20 MCH 30.7 pg (27.0-34.0) 12/22/23 05:20 MCHC 34.1 g/dL (33.0-35.0) 12/22/23 05:20 RDW 14.8 % (11.6-16.5) 12/22/23 05:20 Plt Count 371 X10^3/uL (150.0-450.0) 12/22/23 05:20 MPV 8.1 fL (7.4-11.0) 12/22/23 05:20 Neut % (Auto) 63.5 % (42.0-75.0) 12/22/23 05:20 Lymph % (Auto) 24.9 % (21.0-51.0) 12/22/23 05:20 [place] % (Auto) 8.1 % (0.0-13.0) 12/22/23 05:20 Eos % (Auto) 2.6 % (0.9-2.9) 12/22/23 05:20 Baso % (Auto) 0.9 % (0.2-1.0) 12/22/23 05:20 Neut # (Auto) 3.9 x10^3/uL (2.2-4.8) 12/22/23 05:20 Lymph # (Auto) 1.5 X10^3/uL (1.3-2.9) 12/22/23 05:20 [place] # (Auto) 0.5 x10^3/uL (0.3-0.8) 12/22/23 05:20 Eos # (Auto) 0.2 x10^3/uL (0.0-0.2) 12/22/23 05:20 Baso # (Auto) 0.1 X10^3/uL (0.0-0.1) 12/22/23 05:20 Absolute Nucleated RBC 0.1 /100WBC 12/22/23 05:20 Sodium 141 mmol/L (136-145) 12/22/23 05:20 Corrected Sodium 142 mmol/L (136-145) 12/22/23 05:20 Potassium 3.4 mmol/L (3.5-5.1) L 12/22/23 05:20 Chloride 106 mmol/L (98-107) 12/22/23 05:20 Carbon Dioxide 27.9 mmol/L (21-32) 12/22/23 05:20 BUN 7 mg/dL (7-18) 12/22/23 05:20 Creatinine 0.77 mg/dL (0.70-1.30) 12/22/23 05:20 Est GFR (MDRD) Af Amer > 60 (>60) 12/22/23 05:20 Est GFR (MDRD) Non-Af > 60 (>60) 12/22/23 05:20 Glucose 121 mg/dL (65-99) H 12/22/23 05:20 Calcium 8.6 mg/dL (8.5-10.1) 12/22/23 05:20 Corrected Calcium 10.4 mg/dL (8.5-10.1) H 12/22/23 05:20 Magnesium 2.1 mg/dL (2.0-2.9) 12/22/23 05:20 Total Bilirubin 0.20 mg/dL (0.2-1.0) 12/22/23 05:20 AST 32 Units/L (15-37) 12/22/23 05:20 ALT 38 Units/L (12-78) 12/22/23 05:20 Alkaline Phosphatase 198 Units/L (46-116) H 12/22/23 05:20 Total Protein 5.5 g/dL (6.4-8.2) L 12/22/23 05:20 Albumin 1.8 g/dL (3.4-5.0) L 12/22/23 05:20 Globulin 3.7 g/dL (2.5-4.5) 12/22/23 05:20 Albumin/Globulin Ratio 0.5 Ratio (1.1-2.1) L 12/22/23 05:20 Plan (1) Fracture, pelvis closed: Status: Acute Plan: Pain control while the fracture heals. (2) Primary hypertension: Status: Acute Plan: Continue antihypertensives and maintain patient's blood pressure at 135/85 or less. (3) Generalized weakness: Status: Chronic Plan: Continue physical therapy to help strengthen patient's muscles. (4) CAD (coronary artery disease): Status: Chronic Plan: Strict blood pressure control, and statin therapy. (5) Osteoarthritis: Status: Chronic Plan: Pain control. (6) CKD (chronic kidney disease) stage 3, GFR 30-59 ml/min: Status: Chronic Plan: Renally dose all medications. Monitor renal function with patient 1-2 times per week. (7) Excessive sleepiness: Status: Resolved (8) Hypokalemia: Status: Acute Plan: Initiate potassium replacement protocol. (9) Normocytic anemia: Status: Acute Plan: Check an anemia profile.
[2023-12-23 06:20] LABS: RETICULOCYTE % 1.03 % (0.8-2.2)
[2023-12-24 07:00] LABS: BASOPHILS # (AUTO) 0.1 X10^3/uL (0.0-0.1); BASOPHILS % (AUTO) 1.2 % (0.2-1.0); EOSINOPHILS # (AUTO) 0.2 x10^3/uL (0.0-0.2); HEMATOCRIT 34.9 % (42.0-54.0); HEMOGLOBIN 11.7 g/dL (13.5-18.0); LYMPHOCYTES # (AUTO) 1.6 X10^3/uL (1.3-2.9); LYMPHOCYTES % (AUTO) 25.5 % (21.0-51.0); MEAN CORPUSCULAR HEMOGLOBIN 30.4 pg (27.0-34.0); MEAN CORPUSCULAR HGB CONC 33.4 g/dL (33.0-35.0); MEAN CORPUSCULAR VOLUME 91.1 fL (80.0-100.0); MEAN PLATELET VOLUME 7.9 fL (7.4-11.0); MONOCYTES # (AUTO) 0.4 x10^3/uL (0.3-0.8); MONOCYTES % (AUTO) 6.9 % (0.0-13.0); NEUTROPHILS % (AUTO) 63.4 % (42.0-75.0); PLATELET COUNT 356 X10^3/uL (150.0-450.0); RED BLOOD COUNT 3.83 X10^6/uL (4.7-6.0); RED CELL DISTRIBUTION WIDTH 14.7 % (11.6-16.5); WHITE BLOOD COUNT 6.3 X10^3/uL (3.6-10.0)
[2023-12-24 07:19] LABS: ALANINE AMINOTRANSFERASE 32 Units/L (12-78); ALKALINE PHOSPHATASE 208 Units/L (46-116); ASPARTATE AMINO TRANSFERASE 28 Units/L (15-37); BLOOD UREA NITROGEN 6 mg/dL (7-18); CALCIUM 8.9 mg/dL (8.5-10.1); CHLORIDE 107 mmol/L (98-107); COR CA(FOR HYPOALB) 10.5 mg/dL (8.5-10.1); COR NA(FOR HYPERGLY) 143 mmol/L (136-145); CREATININE 0.71 mg/dL (0.70-1.30); GLUCOSE 116 mg/dL (65-99); MAGNESIUM 2.1 mg/dL (2.0-2.9); POTASSIUM 3.7 mmol/L (3.5-5.1); SODIUM 143 mmol/L (136-145); TOTAL PROTEIN 5.7 g/dL (6.4-8.2); eGFR NON BLACK RACES > 60 (>60)
--- NOTE | 2023-12-25 17:35 | PCM.PROG ---
Progress Note Progress Note for Day of Date of Exam: 12/25/23 Subjective Subjective: PT IS 88 WM, PT OF DR RIOS, CURRENTLY UNDER SWINGBED STATUS FOR PT AND REHAB THERAPY FOLLOWING A PELVIC FRACUTURE. PT HAS BEEN COOPERATING WITH PHYSICAL THERAPY. PT REPORTS HE WAS ABLE TO SIT ON THE SIDE OF THE BED YESTERDAY. PT REPORTS LARGE BM YESTERDAY. CURRENTLY HOLDING COLACE DUE TO LOOSE STOOL AND DISCUSSED MONITORING FOR CONSITPATION WITH PAIN MEDICATION. PT DENIES ANY CHEST PAIN. PT REPORTS PAIN CONTROLLED AT THIS TIME. HGB11.7 ON AM LABS. FAMILY AT BEDSIDE AND REVIEWED LABS AND PLAN OF CARE WITH THEM. Past Medical Family Social History Allergies: Allergies ciprofloxacin [From Cipro] Allergy (Verified 10/02/23 10:44) promethazine [From Phenergan] Allergy (Verified 12/04/23 23:47) Sulfa (Sulfonamide Antibiotics) [SULFA] Allergy (Verified 10/02/23 10:44) Review of Systems ROS: No change since H&P Vital Signs and I&O's Vital Signs: Vital Signs Temperature 97.7 F Pulse Rate [Radial] 78 Respiratory Rate 18 Blood Pressure [Right Arm] 116/57 O2 Sat by Pulse Oximetry 93 Intake and Output: Intake & Output 12/23/23 12/24/23 12/25/23 12/26/23 11:59 11:59 11:59 11:59 Intake Total 548 / 548 200 / 200 680 / 680 560 / 560 Balance 548 / 548 200 / 200 680 / 680 560 / 560 Physical Exam Oriented: Normal Eyes: Normal Ear: Normal Nose: Normal Throat: Normal Respiratory: Normal Cardiovascular: Normal Auscultation: Bowel Sounds: Normal Tenderness: Normal Skin: Normal Musculoskeletal: Left, Wrist, Back:Lumbar, Back:Paraspinous, Pelvis, Tender, Motor Deficit and Instability Psychiatric: Normal Mood Description: Calm Affect: Normal Speech Pattern: Clear and Appropriate Laboratory and Diagnostics 12/24/23 06:25 12/24/23 06:25 Labs: Laboratory WBC 6.3 X10^3/uL (3.6-10.0) 12/24/23 06:25 RBC 3.83 X10^6/uL (4.7-6.0) L 12/24/23 06:25 Hgb 11.7 g/dL (13.5-18.0) L 12/24/23 06:25 Hct 34.9 % (42.0-54.0) L 12/24/23 06:25 MCV 91.1 fL (80.0-100.0) 12/24/23 06:25 MCH 30.4 pg (27.0-34.0) 12/24/23 06:25 MCHC 33.4 g/dL (33.0-35.0) 12/24/23 06:25 RDW 14.7 % (11.6-16.5) 12/24/23 06:25 Plt Count 356 X10^3/uL (150.0-450.0) 12/24/23 06:25 MPV 7.9 fL (7.4-11.0) 12/24/23 06:25 Neut % (Auto) 63.4 % (42.0-75.0) 12/24/23 06:25 Lymph % (Auto) 25.5 % (21.0-51.0) 12/24/23 06:25 [place] % (Auto) 6.9 % (0.0-13.0) 12/24/23 06:25 Eos % (Auto) 3.0 % (0.9-2.9) H 12/24/23 06:25 Baso % (Auto) 1.2 % (0.2-1.0) H 12/24/23 06:25 Neut # (Auto) 4.0 x10^3/uL (2.2-4.8) 12/24/23 06:25 Lymph # (Auto) 1.6 X10^3/uL (1.3-2.9) 12/24/23 06:25 [place] # (Auto) 0.4 x10^3/uL (0.3-0.8) 12/24/23 06:25 Eos # (Auto) 0.2 x10^3/uL (0.0-0.2) 12/24/23 06:25 Baso # (Auto) 0.1 X10^3/uL (0.0-0.1) 12/24/23 06:25 Absolute Nucleated RBC 0.2 /100WBC 12/24/23 06:25 Absolute Retic 0.0381 10^6/uL 12/23/23 05:23 Percent Retic 1.03 % (0.8-2.2) 12/23/23 05:23 Sodium 143 mmol/L (136-145) 12/24/23 06:25 Corrected Sodium 143 mmol/L (136-145) 12/24/23 06:25 Potassium 3.7 mmol/L (3.5-5.1) 12/24/23 06:25 Chloride 107 mmol/L (98-107) 12/24/23 06:25 Carbon Dioxide 29.0 mmol/L (21-32) 12/24/23 06:25 BUN 6 mg/dL (7-18) L 12/24/23 06:25 Creatinine 0.71 mg/dL (0.70-1.30) 12/24/23 06:25 Est GFR (MDRD) Af Amer > 60 (>60) 12/24/23 06:25 Est GFR (MDRD) Non-Af > 60 (>60) 12/24/23 06:25 Glucose 116 mg/dL (65-99) H 12/24/23 06:25 Calcium 8.9 mg/dL (8.5-10.1) 12/24/23 06:25 Corrected Calcium 10.5 mg/dL (8.5-10.1) H 12/24/23 06:25 Magnesium 2.1 mg/dL (2.0-2.9) 12/24/23 06:25 Iron 36 ug/dL (50-175) L 12/23/23 05:23 TIBC 170 ug/dL (250-450) L 12/23/23 05:23 Transferrin 142 mg/dL (202-364) L 12/23/23 05:23 Ferritin 149 ng/mL (26-388) 12/23/23 05:23 Total Bilirubin 0.20 mg/dL (0.2-1.0) 12/24/23 06:25 AST 28 Units/L (15-37) 12/24/23 06:25 ALT 32 Units/L (12-78) 12/24/23 06:25 Alkaline Phosphatase 208 Units/L (46-116) H 12/24/23 06:25 Total Protein 5.7 g/dL (6.4-8.2) L 12/24/23 06:25 Albumin 2.0 g/dL (3.4-5.0) L 12/24/23 06:25 Globulin 3.7 g/dL (2.5-4.5) 12/24/23 06:25 Albumin/Globulin Ratio 0.5 Ratio (1.1-2.1) L 12/24/23 06:25 Vitamin B12 397 pg/mL (193-986) 12/23/23 05:23 Folate 14.8 ng/mL (>8.6) 12/23/23 05:23 Plan (1) Fracture, pelvis closed: Status: Acute Plan: Pain control while the fracture heals. (2) Primary hypertension: Status: Acute Plan: Continue antihypertensives and maintain patient's blood pressure at 135/85 or less. (3) Generalized weakness: Status: Chronic Plan: Continue physical therapy to help strengthen patient's muscles. (4) CAD (coronary artery disease): Status: Chronic Plan: Strict blood pressure control, and statin therapy. (5) Osteoarthritis: Status: Chronic Plan: Pain control. (6) CKD (chronic kidney disease) stage 3, GFR 30-59 ml/min: Status: Chronic Plan: Renally dose all medications. Monitor renal function with patient 1-2 times per week. (7) Excessive sleepiness: Status: Resolved (8) Hypokalemia: Status: Acute Plan: Initiate potassium replacement protocol. (9) Normocytic anemia: Status: Acute Plan: Check an anemia profile.
[2023-12-26 06:39] LABS: BASOPHILS % (AUTO) 0.9 % (0.2-1.0); EOSINOPHILS # (AUTO) 0.2 x10^3/uL (0.0-0.2); EOSINOPHILS % (AUTO) 2.9 % (0.9-2.9); HEMATOCRIT 34.3 % (42.0-54.0); HEMOGLOBIN 11.5 g/dL (13.5-18.0); LYMPHOCYTES # (AUTO) 1.4 X10^3/uL (1.3-2.9); LYMPHOCYTES % (AUTO) 25.8 % (21.0-51.0); MEAN CORPUSCULAR HEMOGLOBIN 30.7 pg (27.0-34.0); MEAN CORPUSCULAR HGB CONC 33.7 g/dL (33.0-35.0); MEAN CORPUSCULAR VOLUME 91.3 fL (80.0-100.0); MEAN PLATELET VOLUME 8.2 fL (7.4-11.0); MONOCYTES # (AUTO) 0.6 x10^3/uL (0.3-0.8); MONOCYTES % (AUTO) 10.6 % (0.0-13.0); NEUTROPHILS # (AUTO) 3.3 x10^3/uL (2.2-4.8); NEUTROPHILS % (AUTO) 59.8 % (42.0-75.0); PLATELET COUNT 308 X10^3/uL (150.0-450.0); RED BLOOD COUNT 3.75 X10^6/uL (4.7-6.0); RED CELL DISTRIBUTION WIDTH 15.1 % (11.6-16.5); WHITE BLOOD COUNT 5.5 X10^3/uL (3.6-10.0)
[2023-12-26 06:56] LABS: ALANINE AMINOTRANSFERASE 25 Units/L (12-78); ALBUMIN 2.1 g/dL (3.4-5.0); ALKALINE PHOSPHATASE 201 Units/L (46-116); ASPARTATE AMINO TRANSFERASE 22 Units/L (15-37); BLOOD UREA NITROGEN 7 mg/dL (7-18); CARBON DIOXIDE 29.4 mmol/L (21-32); CHLORIDE 106 mmol/L (98-107); COR NA(FOR HYPERGLY) 141 mmol/L (136-145); CREATININE 0.78 mg/dL (0.70-1.30); GLUCOSE 113 mg/dL (65-99); POTASSIUM 3.7 mmol/L (3.5-5.1); SODIUM 141 mmol/L (136-145); TOTAL PROTEIN 5.8 g/dL (6.4-8.2); eGFR NON BLACK RACES > 60 (>60)
[2023-12-26 07:07] LABS: CALCIUM 8.8 mg/dL (8.5-10.1); COR CA(FOR HYPOALB) 10.3 mg/dL (8.5-10.1)
--- NOTE | 2023-12-28 23:41 | PCM.PROG ---
Progress Note Progress Note for Day of Date of Exam: 12/28/23 Subjective Subjective: The patient reports that he is doing better today. His is present and states that he is getting stronger every day and his appetite is still doing well. He still is not able to get up to go to the bathroom by himself but he has another week of swing bed so hopefully by the end of that week he will be strong enough to go home but if not we will move him over to the residential for inpatient rehab for a short while until he get strong enough to go home on his own. No changes at this time. Repeat labs 3 days from now at his next visit. Past Medical Family Social History Allergies: Allergies ciprofloxacin [From Cipro] Allergy (Verified 10/02/23 10:44) promethazine [From Phenergan] Allergy (Verified 12/04/23 23:47) Sulfa (Sulfonamide Antibiotics) [SULFA] Allergy (Verified 10/02/23 10:44) Review of Systems ROS: No change since H&P Vital Signs and I&O's Vital Signs: Vital Signs Temperature 98.2 F Pulse Rate [Radial] 85 Respiratory Rate 26 Blood Pressure [Right Arm] 128/63 O2 Sat by Pulse Oximetry 94 Intake and Output: Intake & Output 12/26/23 12/27/23 12/28/23 12/29/23 11:59 11:59 11:59 11:59 Intake Total 560 / 560 20 / 20 780 / 780 810 / 810 Balance 560 / 560 20 / 20 780 / 780 810 / 810 Physical Exam Oriented: Normal Eyes: Normal Ear: Normal Nose: Normal Throat: Normal Respiratory: Normal Cardiovascular: Normal Auscultation: Bowel Sounds: Normal Tenderness: Normal Skin: Normal Musculoskeletal: Left, Wrist, Back:Lumbar, Back:Paraspinous, Pelvis, Tender, Motor Deficit and Instability Psychiatric: Normal Mood Description: Calm Affect: Normal Speech Pattern: Clear and Appropriate Laboratory and Diagnostics 12/26/23 05:40 12/26/23 05:40 Labs: Laboratory WBC 5.5 X10^3/uL (3.6-10.0) 12/26/23 05:40 RBC 3.75 X10^6/uL (4.7-6.0) L 12/26/23 05:40 Hgb 11.5 g/dL (13.5-18.0) L 12/26/23 05:40 Hct 34.3 % (42.0-54.0) L 12/26/23 05:40 MCV 91.3 fL (80.0-100.0) 12/26/23 05:40 MCH 30.7 pg (27.0-34.0) 12/26/23 05:40 MCHC 33.7 g/dL (33.0-35.0) 12/26/23 05:40 RDW 15.1 % (11.6-16.5) 12/26/23 05:40 Plt Count 308 X10^3/uL (150.0-450.0) 12/26/23 05:40 MPV 8.2 fL (7.4-11.0) 12/26/23 05:40 Neut % (Auto) 59.8 % (42.0-75.0) 12/26/23 05:40 Lymph % (Auto) 25.8 % (21.0-51.0) 12/26/23 05:40 [place] % (Auto) 10.6 % (0.0-13.0) 12/26/23 05:40 Eos % (Auto) 2.9 % (0.9-2.9) 12/26/23 05:40 Baso % (Auto) 0.9 % (0.2-1.0) 12/26/23 05:40 Neut # (Auto) 3.3 x10^3/uL (2.2-4.8) 12/26/23 05:40 Lymph # (Auto) 1.4 X10^3/uL (1.3-2.9) 12/26/23 05:40 [place] # (Auto) 0.6 x10^3/uL (0.3-0.8) 12/26/23 05:40 Eos # (Auto) 0.2 x10^3/uL (0.0-0.2) 12/26/23 05:40 Baso # (Auto) 0.0 X10^3/uL (0.0-0.1) 12/26/23 05:40 Absolute Nucleated RBC 0.1 /100WBC 12/26/23 05:40 Absolute Retic 0.0381 10^6/uL 12/23/23 05:23 Percent Retic 1.03 % (0.8-2.2) 12/23/23 05:23 Sodium 141 mmol/L (136-145) 12/26/23 05:40 Corrected Sodium 141 mmol/L (136-145) 12/26/23 05:40 Potassium 3.7 mmol/L (3.5-5.1) 12/26/23 05:40 Chloride 106 mmol/L (98-107) 12/26/23 05:40 Carbon Dioxide 29.4 mmol/L (21-32) 12/26/23 05:40 BUN 7 mg/dL (7-18) 12/26/23 05:40 Creatinine 0.78 mg/dL (0.70-1.30) 12/26/23 05:40 Est GFR (MDRD) Af Amer > 60 (>60) 12/26/23 05:40 Est GFR (MDRD) Non-Af > 60 (>60) 12/26/23 05:40 Glucose 113 mg/dL (65-99) H 12/26/23 05:40 Calcium 8.8 mg/dL (8.5-10.1) 12/26/23 05:40 Corrected Calcium 10.3 mg/dL (8.5-10.1) H 12/26/23 05:40 Magnesium 2.1 mg/dL (2.0-2.9) 12/24/23 06:25 Iron 36 ug/dL (50-175) L 12/23/23 05:23 TIBC 170 ug/dL (250-450) L 12/23/23 05:23 Transferrin 142 mg/dL (202-364) L 12/23/23 05:23 Ferritin 149 ng/mL (26-388) 12/23/23 05:23 Total Bilirubin 0.20 mg/dL (0.2-1.0) 12/26/23 05:40 AST 22 Units/L (15-37) 12/26/23 05:40 ALT 25 Units/L (12-78) 12/26/23 05:40 Alkaline Phosphatase 201 Units/L (46-116) H 12/26/23 05:40 Total Protein 5.8 g/dL (6.4-8.2) L 12/26/23 05:40 Albumin 2.1 g/dL (3.4-5.0) L 12/26/23 05:40 Globulin 3.7 g/dL (2.5-4.5) 12/26/23 05:40 Albumin/Globulin Ratio 0.6 Ratio (1.1-2.1) L 12/26/23 05:40 Vitamin B12 397 pg/mL (193-986) 12/23/23 05:23 Folate 14.8 ng/mL (>8.6) 12/23/23 05:23 Plan (1) Fracture, pelvis closed: Status: Acute Plan: Pain control while the fracture heals. (2) Primary hypertension: Status: Acute Plan: Continue antihypertensives and maintain patient's blood pressure at 135/85 or less. (3) Generalized weakness: Status: Chronic Plan: Continue physical therapy to help strengthen patient's muscles. (4) CAD (coronary artery disease): Status: Chronic Plan: Strict blood pressure control, and statin therapy. (5) Osteoarthritis: Status: Chronic Plan: Pain control. (6) CKD (chronic kidney disease) stage 3, GFR 30-59 ml/min: Status: Chronic Plan: Renally dose all medications. Monitor renal function with patient 1-2 times per week. (7) Excessive sleepiness: Status: Resolved (8) Hypokalemia: Status: Acute Plan: Initiate potassium replacement protocol. (9) Normocytic anemia: Status: Acute Plan: Check an anemia profile.
[2023-12-29 05:40] LABS: BASOPHILS # (AUTO) 0.1 X10^3/uL (0.0-0.1); EOSINOPHILS # (AUTO) 0.2 x10^3/uL (0.0-0.2); EOSINOPHILS % (AUTO) 2.9 % (0.9-2.9); HEMOGLOBIN 11.6 g/dL (13.5-18.0); LYMPHOCYTES # (AUTO) 1.1 X10^3/uL (1.3-2.9); LYMPHOCYTES % (AUTO) 21.1 % (21.0-51.0); MEAN CORPUSCULAR HEMOGLOBIN 30.6 pg (27.0-34.0); MEAN CORPUSCULAR HGB CONC 33.2 g/dL (33.0-35.0); MEAN CORPUSCULAR VOLUME 92.2 fL (80.0-100.0); MONOCYTES # (AUTO) 0.5 x10^3/uL (0.3-0.8); MONOCYTES % (AUTO) 9.3 % (0.0-13.0); NEUTROPHILS # (AUTO) 3.4 x10^3/uL (2.2-4.8); NEUTROPHILS % (AUTO) 65.7 % (42.0-75.0); PLATELET COUNT 239 X10^3/uL (150.0-450.0); RED BLOOD COUNT 3.79 X10^6/uL (4.7-6.0); RED CELL DISTRIBUTION WIDTH 15.4 % (11.6-16.5); WHITE BLOOD COUNT 5.2 X10^3/uL (3.6-10.0)
[2023-12-29 06:21] LABS: ALANINE AMINOTRANSFERASE 19 Units/L (12-78); ALBUMIN 2.2 g/dL (3.4-5.0); ALKALINE PHOSPHATASE 198 Units/L (46-116); ASPARTATE AMINO TRANSFERASE 22 Units/L (15-37); BLOOD UREA NITROGEN 6 mg/dL (7-18); CALCIUM 8.7 mg/dL (8.5-10.1); CARBON DIOXIDE 28.2 mmol/L (21-32); CHLORIDE 106 mmol/L (98-107); COR CA(FOR HYPOALB) 10.1 mg/dL (8.5-10.1); GLUCOSE 105 mg/dL (65-99); POTASSIUM 3.5 mmol/L (3.5-5.1); SODIUM 140 mmol/L (136-145); TOTAL PROTEIN 5.8 g/dL (6.4-8.2); eGFR NON BLACK RACES > 60 (>60)
[2023-12-29] MEDS ORDERED: CONSULT PHARMACY - POTASSIUM & MAGNESIUM XX SCH (07:00)
[2023-12-29] MEDS ORDERED: K-DUR TAB 20 MEQ PO ONE (08:30)
[2023-12-29] MEDS: K-DUR TAB 20 MEQ PO SCH (08:50)
[2023-12-29] MEDS ORDERED: ZOFRAN INJ 4 MG VIAL ONE (13:34)
[2023-12-29] MEDS: ZOFRAN INJ 4 MG VIAL IVP PRN (13:41)
[2023-12-31 06:25] LABS: BASOPHILS % (AUTO) 0.7 % (0.2-1.0); EOSINOPHILS # (AUTO) 0.1 x10^3/uL (0.0-0.2); EOSINOPHILS % (AUTO) 3.1 % (0.9-2.9); HEMATOCRIT 32.3 % (42.0-54.0); LYMPHOCYTES # (AUTO) 1.3 X10^3/uL (1.3-2.9); LYMPHOCYTES % (AUTO) 28.7 % (21.0-51.0); MEAN CORPUSCULAR HEMOGLOBIN 31.2 pg (27.0-34.0); MEAN CORPUSCULAR VOLUME 91.9 fL (80.0-100.0); MEAN PLATELET VOLUME 8.2 fL (7.4-11.0); MONOCYTES # (AUTO) 0.6 x10^3/uL (0.3-0.8); MONOCYTES % (AUTO) 13.2 % (0.0-13.0); NEUTROPHILS # (AUTO) 2.5 x10^3/uL (2.2-4.8); NEUTROPHILS % (AUTO) 54.3 % (42.0-75.0); PLATELET COUNT 237 X10^3/uL (150.0-450.0); RED BLOOD COUNT 3.52 X10^6/uL (4.7-6.0); RED CELL DISTRIBUTION WIDTH 15.6 % (11.6-16.5); WHITE BLOOD COUNT 4.7 X10^3/uL (3.6-10.0)
[2023-12-31 06:49] LABS: ALANINE AMINOTRANSFERASE 17 Units/L (12-78); ALBUMIN 2.1 g/dL (3.4-5.0); ALKALINE PHOSPHATASE 174 Units/L (46-116); ASPARTATE AMINO TRANSFERASE 21 Units/L (15-37); BLOOD UREA NITROGEN 9 mg/dL (7-18); CALCIUM 8.7 mg/dL (8.5-10.1); CARBON DIOXIDE 28.9 mmol/L (21-32); CHLORIDE 107 mmol/L (98-107); COR CA(FOR HYPOALB) 10.2 mg/dL (8.5-10.1); CREATININE 0.79 mg/dL (0.70-1.30); GLUCOSE 91 mg/dL (65-99); POTASSIUM 3.9 mmol/L (3.5-5.1); SODIUM 141 mmol/L (136-145); TOTAL PROTEIN 5.5 g/dL (6.4-8.2); eGFR NON BLACK RACES > 60 (>60)
[2024-01-01] MEDS: K-DUR TAB 20 MEQ PO SCH (06:15)
--- NOTE | 2024-01-01 09:56 | PCM.PROG ---
Progress Note Progress Note for Day of Date of Exam: 01/01/24 Subjective Subjective: The patient and his report that he is doing better overall. I think he is still getting stronger but is happening slowly. The patient is eating fairly well and his appetite has improved. He is not going to the bathroom by himself at this time. He is still weak and still a danger to himself for high risk for falling. He needs continued inpatient physical rehabilitation before going home. We are nearing the end of the days for swing bed so we are transferring him to [facility] for continued inpatient rehabilitation. He will be transferred probably at the end of this week or first of next week depending on when it is ordered to get approved by insurance. No new changes at this time continue what we are doing. Past Medical Family Social History Allergies: Allergies ciprofloxacin [From Cipro] Allergy (Verified 10/02/23 10:44) promethazine [From Phenergan] Allergy (Verified 12/04/23 23:47) Sulfa (Sulfonamide Antibiotics) [SULFA] Allergy (Verified 10/02/23 10:44) Review of Systems ROS: No change since H&P Vital Signs and I&O's Intake and Output: Intake & Output 12/29/23 12/30/23 12/31/23 01/01/24 11:59 11:59 11:59 11:59 Intake Total 820 / 820 900 / 900 130 / 130 1260 / 1260 Balance 820 / 820 900 / 900 130 / 130 1260 / 1260 Physical Exam Oriented: Normal Eyes: Normal Ear: Normal Nose: Normal Throat: Normal Respiratory: Normal Cardiovascular: Normal Auscultation: Bowel Sounds: Normal Tenderness: Normal Skin: Normal Musculoskeletal: Left, Wrist, Back:Lumbar, Back:Paraspinous, Pelvis, Tender, Motor Deficit and Instability Psychiatric: Normal Mood Description: Calm Affect: Normal Speech Pattern: Clear and Appropriate Laboratory and Diagnostics 12/31/23 05:49 12/31/23 05:49 Labs: Laboratory WBC 4.7 X10^3/uL (3.6-10.0) 12/31/23 05:49 RBC 3.52 X10^6/uL (4.7-6.0) L 12/31/23 05:49 Hgb 11.0 g/dL (13.5-18.0) L 12/31/23 05:49 Hct 32.3 % (42.0-54.0) L 12/31/23 05:49 MCV 91.9 fL (80.0-100.0) 12/31/23 05:49 MCH 31.2 pg (27.0-34.0) 12/31/23 05:49 MCHC 34.0 g/dL (33.0-35.0) 12/31/23 05:49 RDW 15.6 % (11.6-16.5) 12/31/23 05:49 Plt Count 237 X10^3/uL (150.0-450.0) 12/31/23 05:49 MPV 8.2 fL (7.4-11.0) 12/31/23 05:49 Neut % (Auto) 54.3 % (42.0-75.0) 12/31/23 05:49 Lymph % (Auto) 28.7 % (21.0-51.0) 12/31/23 05:49 Ogle % (Auto) 13.2 % (0.0-13.0) H 12/31/23 05:49 Eos % (Auto) 3.1 % (0.9-2.9) H 12/31/23 05:49 Baso % (Auto) 0.7 % (0.2-1.0) 12/31/23 05:49 Neut # (Auto) 2.5 x10^3/uL (2.2-4.8) 12/31/23 05:49 Lymph # (Auto) 1.3 X10^3/uL (1.3-2.9) 12/31/23 05:49 Ogle # (Auto) 0.6 x10^3/uL (0.3-0.8) 12/31/23 05:49 Eos # (Auto) 0.1 x10^3/uL (0.0-0.2) 12/31/23 05:49 Baso # (Auto) 0.0 X10^3/uL (0.0-0.1) 12/31/23 05:49 Absolute Nucleated RBC 0.2 /100WBC 12/31/23 05:49 Absolute Retic 0.0381 10^6/uL 12/23/23 05:23 Percent Retic 1.03 % (0.8-2.2) 12/23/23 05:23 Sodium 141 mmol/L (136-145) 12/31/23 05:49 Corrected Sodium TNP 12/31/23 05:49 Potassium 3.9 mmol/L (3.5-5.1) 12/31/23 05:49 Chloride 107 mmol/L (98-107) 12/31/23 05:49 Carbon Dioxide 28.9 mmol/L (21-32) 12/31/23 05:49 BUN 9 mg/dL (7-18) 12/31/23 05:49 Creatinine 0.79 mg/dL (0.70-1.30) 12/31/23 05:49 Est GFR (MDRD) Af Amer > 60 (>60) 12/31/23 05:49 Est GFR (MDRD) Non-Af > 60 (>60) 12/31/23 05:49 Glucose 91 mg/dL (65-99) 12/31/23 05:49 Calcium 8.7 mg/dL (8.5-10.1) 12/31/23 05:49 Corrected Calcium 10.2 mg/dL (8.5-10.1) H 12/31/23 05:49 Magnesium 2.1 mg/dL (2.0-2.9) 12/24/23 06:25 Iron 36 ug/dL (50-175) L 12/23/23 05:23 TIBC 170 ug/dL (250-450) L 12/23/23 05:23 Transferrin 142 mg/dL (202-364) L 12/23/23 05:23 Ferritin 149 ng/mL (26-388) 12/23/23 05:23 Total Bilirubin 0.20 mg/dL (0.2-1.0) 12/31/23 05:49 AST 21 Units/L (15-37) 12/31/23 05:49 ALT 17 Units/L (12-78) 12/31/23 05:49 Alkaline Phosphatase 174 Units/L (46-116) H 12/31/23 05:49 Total Protein 5.5 g/dL (6.4-8.2) L 12/31/23 05:49 Albumin 2.1 g/dL (3.4-5.0) L 12/31/23 05:49 Globulin 3.4 g/dL (2.5-4.5) 12/31/23 05:49 Albumin/Globulin Ratio 0.6 Ratio (1.1-2.1) L 12/31/23 05:49 Vitamin B12 397 pg/mL (193-986) 12/23/23 05:23 Folate 14.8 ng/mL (>8.6) 12/23/23 05:23 Radiology Reviewed: Yes Plan (1) Fracture, pelvis closed: Status: Acute Plan: Pain control while the fracture heals. (2) Primary hypertension: Status: Acute Plan: Continue antihypertensives and maintain patient's blood pressure at 135/85 or less. (3) Generalized weakness: Status: Chronic Plan: Continue physical therapy to help strengthen patient's muscles. (4) CAD (coronary artery disease): Status: Chronic Plan: Strict blood pressure control, and statin therapy. (5) Osteoarthritis: Status: Chronic Plan: Pain control. (6) CKD (chronic kidney disease) stage 3, GFR 30-59 ml/min: Status: Chronic Plan: Renally dose all medications. Monitor renal function with patient 1-2 times per week. (7) Excessive sleepiness: Status: Resolved (8) Hypokalemia: Status: Resolved Plan: Initiate potassium replacement protocol. (9) Normocytic anemia: Status: Acute Narrative Support Text: Stable. Plan: Check an anemia profile.
[2024-01-01] MEDS: NS 250 ML IV 250 ML IV ONE (10:17)
[2024-01-01] MEDS ORDERED: MILK OF MAGNESIA PO PRN (11:34)
[2024-01-01] MEDS: DUONEB 0.5 MG/3 MG (3 mL) NEB SCH (12:49)
[2024-01-01] MEDS: DUONEB 0.5 MG/3 MG (3 mL) NEB ONE (17:19)
[2024-01-02 06:24] LABS: BASOPHILS % (AUTO) 0.8 % (0.2-1.0); EOSINOPHILS # (AUTO) 0.1 x10^3/uL (0.0-0.2); EOSINOPHILS % (AUTO) 1.9 % (0.9-2.9); HEMATOCRIT 30.7 % (42.0-54.0); HEMOGLOBIN 10.5 g/dL (13.5-18.0); LYMPHOCYTES # (AUTO) 1.8 X10^3/uL (1.3-2.9); LYMPHOCYTES % (AUTO) 33.8 % (21.0-51.0); MEAN CORPUSCULAR HEMOGLOBIN 31.5 pg (27.0-34.0); MEAN CORPUSCULAR HGB CONC 34.3 g/dL (33.0-35.0); MEAN CORPUSCULAR VOLUME 91.9 fL (80.0-100.0); MEAN PLATELET VOLUME 8.3 fL (7.4-11.0); MONOCYTES # (AUTO) 0.5 x10^3/uL (0.3-0.8); MONOCYTES % (AUTO) 9.9 % (0.0-13.0); NEUTROPHILS # (AUTO) 2.8 x10^3/uL (2.2-4.8); NEUTROPHILS % (AUTO) 53.6 % (42.0-75.0); PLATELET COUNT 229 X10^3/uL (150.0-450.0); RED BLOOD COUNT 3.34 X10^6/uL (4.7-6.0); RED CELL DISTRIBUTION WIDTH 15.4 % (11.6-16.5); WHITE BLOOD COUNT 5.2 X10^3/uL (3.6-10.0)
[2024-01-02 06:42] LABS: ALANINE AMINOTRANSFERASE 14 Units/L (12-78); ALKALINE PHOSPHATASE 157 Units/L (46-116); ASPARTATE AMINO TRANSFERASE 19 Units/L (15-37); BLOOD UREA NITROGEN 6 mg/dL (7-18); CALCIUM 8.8 mg/dL (8.5-10.1); CARBON DIOXIDE 26.9 mmol/L (21-32); CHLORIDE 108 mmol/L (98-107); COR CA(FOR HYPOALB) 10.4 mg/dL (8.5-10.1); CREATININE 0.74 mg/dL (0.70-1.30); GLUCOSE 93 mg/dL (65-99); POTASSIUM 3.7 mmol/L (3.5-5.1); SODIUM 143 mmol/L (136-145); TOTAL PROTEIN 5.4 g/dL (6.4-8.2); eGFR NON BLACK RACES > 60 (>60)
[2024-01-02 09:38] VITALS: BP 126/76; PULSE 80; RESP 17; TEMP 98.3; O2SAT 96
== END 2024-01-02 14:25 | DRG 536 ==
LOC: MED/SURG 12:30
PROVIDERS: ADMIT Family Medicine; ATTEND Family Medicine
DX: D64.89 Other specified anemias; I25.10 Atherosclerotic heart disease of native coronary artery without angina pectoris; M19.90 Unspecified osteoarthritis, unspecified site; S32.9XXA Fracture of unspecified parts of lumbosacral spine and pelvis, initial encounter for closed fracture; R53.1 Weakness; E87.6 Hypokalemia; X58.XXXA Exposure to other specified factors, initial encounter; G47.10 Hypersomnia, unspecified; I12.9 Hypertensive chronic kidney disease with stage 1 through stage 4 chronic kidney disease, or unspecified chronic kidney disease; Y92.9 Unspecified place or not applicable; N18.30 Chronic kidney disease, stage 3 unspecified